=== PATIENT | male | born 1940 | race Caucasian/White ===

== ENCOUNTER 2021-06-25 12:07 | Emergency (ER) | payer OTHER, MEDICARE, SELFPAY ==
[2021-06-25 12:56] VITALS: BP 195/89; PULSE 66; RESP 20; TEMP 36.7; O2SAT 98
--- NOTE | 2021-06-25 13:12 | ED.SKABFB ---
HPI - Skin/Abscess/Foreign Bdy General Chief complaint: Skin/Abscess/Foreign Body Stated complaint: boils on neck Time Seen by Provider: 06/25/21 13:17 Source: patient and family Mode of arrival: wheelchair Limitations: no limitations History of Present Illness HPI narrative: 80-year-old man comes in today complaining of tender, swollen and draining area on the left side of his neck that started a few days ago. His noted that the drainage was sometimes red, sometimes yellow. He states it is mildly tender with palpation. His is worried that he has some swelling around that area. He denies fever, nausea, vomiting, weakness or prior skin infections or MRSA infections. complaint: abscess/boil Onset (ago): day(s) (3) Tetanus up to date: unsure Location: neck Severity: moderate Quality: sharp Pain Consistency: intermittent Relieving factors: none Exacerbating factors: palpation Context: other (Had a lesion removed from his lower lip last week.) Associated symptoms: denies other symptoms Treatments prior to arrival: other (Topical peroxide) Related Data Home Medications Medication Instructions Recorded Confirmed metformin 1,000 mg PO BID 06/25/21 06/25/21 Allergies Allergy/AdvReac Type Severity Reaction Status Date / Time No Known Allergies Allergy Verified 06/25/21 13:21 Review of Systems Review of Systems: All systems reviewed & are unremarkable except as noted in HPI and below Constitutional: Constitutional: Denies chills and Denies fever(s) Cardiovascular: Cardiovascular: Denies chest pain and Denies radiating jaw, neck or arm pain Respiratory: Respiratory: Denies cough, Denies dyspnea and Denies wheezing Gastrointestinal: Gastrointestinal: Denies abdominal pain, Denies nausea and Denies vomiting Genitourinary: Genitourinary: Denies hematuria, Denies dysuria and Denies urinary frequency Musculoskeletal: Musculoskeletal: Denies back pain, Denies arthralgias and Denies joint swelling Integumentary/Breasts: Skin/Breast: Denies pruritus, Denies erythema and Denies rash Neurologic: Denies vertigo, Denies dizziness and Denies syncope Hematologic/Lymphatic: Hematologic/Lymphatic: Denies easy bleeding and Denies easy bruising PMFSH Past Medical History Medical History (Updated 06/25/21 @ 14:28 by Mario Reza MD) HTN (hypertension) T2DM (type 2 diabetes mellitus) Social History Social History (Updated 06/25/21 @ 14:23 by Mario Reza MD) Smoking status: Former smoker Alcohol intake: former Substance use: never Living arrangements: with family Exam Const: General: healthy appearing, no acute distress and alert Orientation/consciousness: patient oriented x3 Limitations: no limitations HENMT: Head: normal to inspection Face and sinus: normal facial exam Eyes: Conjunctivae: conjunctivae normal Pupils: Equal, round and reactive pupils present EOM: EOMs intact bilaterally Neck: Neck: no lymphadenopathy Other: 2 x 1 cm mildly tender area of erythema and fluctuance on the left lateral neck. There is also a narrow 2 cm long area of moist skin with some central yellow exudate in a skin fold. Resp: Effort & Inspection: normal respiratory effort and not labored Auscultation: clear to auscultation bilaterally, no rales, no rhonchi and no wheezes Cardio: Rate: regular rate Rhythm: regular rhythm Heart sounds: no murmurs Skin: General skin exam: normal color, no jaundice and no pallor Rashes: no rashes Neuro: General: patient oriented x3, moves all extremities, no focal motor deficits and CN's II-XI intact bilaterally Speech: normal speech Extrem: General: normal to inspection and no clubbing, cyanosis or edema Psych: Appearance: grossly normal and well kempt Mental Status: mental status grossly normal Affect: normal affect Attitude: cooperative Thought content: Yes Normal thought content present Course Vital Signs Vital signs: Vital Signs Temperature 36.
[2021-06-25 14:53] VITALS: PULSE 66; RESP 20; O2SAT 98
== END 2021-06-25 14:56 | disposition home or self-care (01) ==
PROVIDERS: Emergency Provider Emergency Medicine
DX: L02.11 Cutaneous abscess of neck (principal); I10 Essential (primary) hypertension; E11.9 Type 2 diabetes mellitus without complications; Z87.891 Personal history of nicotine dependence
CPT/HCPCS: 10060; 87070; 87205; 99283

== ENCOUNTER 2025-07-25 10:22 | Emergency (ER) | payer OTHER, SELFPAY ==
[2025-07-25] VITALS (40 sets, daily range): BP systolic 102–137; BP diastolic 49–69; PULSE 75–85; RESP 8–21; TEMP 36.6; O2SAT 96–100
--- NOTE | ~2025-07-25 | XR_ITS ---
EXAM/PROCEDURE: XR chest 1V portable HISTORY: Weakness COMPARISON: None available. TECHNIQUE: AP view(s) of the chest. FINDINGS: LUNGS: Grossly Clear of acute processes. The exam is obtained in expiration, which is causing crowding of the lung markings. PLEURAL SPACES: Clear. No evidence of fluid or pneumothorax. HEART/ MEDIASTINUM: Prominent, at least in part related to the AP technique SOFT TISSUES: No significant findings. BONES: No acute osseous abnormality. IMPRESSION: No acute findings. Reviewed, dictated and finalized at location A. UNITY OUTREACH ADVOCATE IMPRESSION: No acute findings.
--- NOTE | ~2025-07-25 | CT_ITS ---
CT HEAD NON-CONTRAST Clinical History: weakness Comparison: None Technique: Unenhanced axial images skull base to vertex Coronal, sagittal reformats CT images acquired with automatic exposure control for dose reduction DLP: 757 mGy-cm Findings: White matter chronic microvascular ischemic changes. Lacune right insula. Sulci, ventricles: Unremarkable. No intracerebral hemorrhage. No evidence acute territorial infarct. No mass effect, midline shift. Bony calvarium intact. Visualized paranasal sinuses: Clear. Mastoid air cells: Clear. IMPRESSION: 1. No acute intracranial findings. Reviewed, dictated and finalized at location R. ES ASSISTANT
--- NOTE | 2025-07-25 10:44 | ECG_ITS ---
Test Date: 2025-07-25 11:15:32 Measurements Intervals [place] Rate: 74 P: 0 WV: 0 QRS: -50 QRSD: 144 T: 113 QT: 423 QTc: 472 Interpretive Statements SINUS RHYTHM with first degree block LEFT AXIS DEVIATION [QRS AXIS < -30] LEFT BUNDLE BRANCH BLOCK [120+ ms QRS DURATION, 80+ ms Q/S IN V1/V2, 85+ ms R IN I/aVL/V5/V6] No previous ECG available for comparison Electronically Signed On 07-25-2025 21:30:22 [employer] by Barrett Rodriguez M.D.
--- NOTE | 2025-07-25 11:23 | ED.WEAKNESS ---
HPI - Weakness General Chief complaint: Weakness Stated complaint: wound Time Seen by Provider: 07/25/25 10:42 Source: patient and family Mode of arrival: EMS Limitations: other (Patient has Parkinson's disease and difficulty with speech chronically) History of Present Illness HPI Narrative: Patient is an 84-year-old male with Parkinson's disease here with generalized weakness and not eating for the past 2 weeks. He has loss significant weight over the past month according to the . [facility] due to the fact that he is not eating and losing weight. Some of the eating problem appears to be due to the fact that he is not able to swallow properly with the Parkinson's disease which has been going on for a period of time. No fever chills. No chest pain or shortness of breath. Nausea vomiting or diarrhea denied. MD Complaint: generalized weakness and difficulty walking Onset (ago): week(s) (Acutely the generalized weakness has gotten worse from baseline) Duration: constant Location: generalized Migration: none Severity: moderate Severity scale (1-10): 4 Quality: other (No pain) Relieving factors: none Exacerbating factors: none Context: history of similar Associated symptoms: loss of appetite Related Data Home Medications ?Medication ?Instructions ?Recorded ?Confirmed ?Last Taken ?Type metformin 1,000 mg tablet 1,000 mg PO BID 06/25/21 06/25/21 06/25/21 History Allergies Allergy/AdvReac Type Severity Reaction Status Date / Time No Known Allergies Allergy Verified 07/25/25 11:06 Review of Systems Review of Systems: All systems reviewed & are unremarkable except as noted in HPI and below Constitutional: Constitutional: Reports no additional constitutional complaints Eyes: Eyes: Reports no additional eye complaints ENT: Reports system reviewed and no additional complaints, except as documented Cardiovascular: Cardiovascular: Reports no additional cardiovascular complaints Respiratory: Respiratory: Reports no additional respiratory complaints Gastrointestinal: Gastrointestinal: Reports no additional gastrointestinal complaints Genitourinary: Genitourinary: Reports no additional male genitourinary complaints Musculoskeletal: Musculoskeletal: Reports no additional musculoskeletal complaints Integumentary/Breasts: Skin/Breast: Reports system reviewed and no additional complaints, except as docu Neurologic: Reports system reviewed and no additional complaints, except as documented Psychiatric: Psychiatric: Reports no additional psychiatric complaints Endocrine: Endocrine: Reports no additional endocrine complaints Hematologic/Lymphatic: Hematologic/Lymphatic: Reports no additional hematologic/lymphatic complaints Allergic/Immunologic: Allergic/Immunologic: Reports no additional allergic/immunologic complaints PMFSH Past Medical History Medical History (Reviewed 07/25/25 @ 11: by Yonathan Stone MD) T2DM (type 2 diabetes mellitus) HTN (hypertension) Social History Social History Smoking status: Former smoker Alcohol intake: former Substance use: never Living arrangements: with family Exam Const: General: healthy appearing Nutritional Appearance: well nourished Orientation/consciousness: patient oriented x3 HENMT: Head: normal to inspection Ears: external ears normal Face/Nose/Sinus: Normal external nose present Eyes: Conjunctivae: conjunctivae normal Pupils: Equal, round and reactive pupils present EOM: EOMs intact bilaterally Neck: Neck: normal visual inspection, no lymphadenopathy and no meningeal signs Chest: Chest palpation & inspection: normal inspection of the chest Resp: Effort & Inspection: normal respiratory effort and not labored Auscultation: clear to auscultation bilaterally and no crackles Cardio: Rate: regular rate Rhythm: regular rhythm Heart sounds: no murmurs GI: Inspection: non-distended GI Palp: Yes Soft to palpation and No Tenderness to palpation present (GI) Auscultation: normal bowel sounds : General: Yes bladder normal to palpation Back/Spine/Pelvis: Back: no CVA tenderness Skin: General skin exam: normal color and no jaundice Rashes: no rashes Wounds: no wounds Neuro: General: patient oriented x3, moves all extremities, no meningeal signs, no focal motor deficits and CN's II-XI intact bilaterally Cranial nerves: Yes Nystagmus not present Speech: No normal speech (Lack of speech) Gait exam (Neuro): gait abnormal (Difficulty chronically with gait due to Parkinson's disease) Other: Fast exam is negative, NIH 0, GCS is 15 Psych: Mental Status: mental status grossly normal Affect: normal affect Attitude: cooperative Course Vital Signs Vital signs: Vital Signs Temperature 36.6 C 07/25/25 10:22 Pulse Rate 76 07/25/25 10:22 Respiratory Rate 20 07/25/25 10:22 Blood Pressure 130/53 L 07/25/25 10:22 Pulse Oximetry 100 07/25/25 10:22 Oxygen Delivery Room Air 07/25/25 10:22 Temperature 36.6 C 07/25/25 10:22 Pulse Rate 82 07/25/25 14:31 Respiratory Rate 13 07/25/25 14:31 Blood Pressure 132/53 L 07/25/25 14:31 Pulse Oximetry 98 07/25/25 14:31 Oxygen Delivery Room Air 07/25/25 10:22 MDM - Weakness MDM Narrative Medical decision making narrative: Patient is an 84-year-old male with generalized weakness and lack of eating for 2 weeks with difficulty swallowing all happening with his Parkinson's disease. Will do a neurocardiogenic workup at this time. EKG. Labs. IV fluids. Patient will be transferred for higher level medical [facility] to [facility]. I reviewed the patient's decubitus ulcer area on his bottom and it is only proud tissue and scar tissue at this time without any open wounds. It is a non stage decubitus ulcer. Lab Data Attestation: I reviewed the patient's lab results. 07/25/25 11:27 07/25/25 13:42 Labs: Lab Results 07/25/25 07/25/25 07/25/25 Range/Units 11:27 13:13 13:42 WBC 8.2 (4.8-10.8) K/mm3 RBC 3.29 L (4.70-6.10) M/mm3 Hgb 10.1 L (12.4-15.3) g/dL Hct 31.8 L (37.0-46.0) % MCV 96.7 (78.0-102.0) fL MCH 30.7 (27.0-31.0) pg MCHC 31.8 L (32-36) g/dL RDW 14.0 (11.6-14.4) % Plt Count 245 (150-420) K/mm3 MPV 9.2 (8.7-11.0) fl Immature Gran % (Auto) 0.6 H (0.0-0.0) % Neut % (Auto) 79.4 H (50.0-70.0) % Lymph % (Auto) 13.7 L (18.0-42.0) % [place] % (Auto) 5.5 (2.0-11.0) % Eos % (Auto) 0.4 L (1.0-6.0) % Baso % (Auto) 0.4 (0.0-1.0) % Lymph # (Auto) 1.12 (1.10-4.50) K/mm3 [place] # (Auto) 0.45 (0.10-0.90) K/mm3 Eos # (Auto) 0.03 (0.02-0.50) K/mm3 Baso # (Auto) 0.03 (0.00-0.10) K/mm3 Abs Immat Gran (auto) 0.05 H (0.00-0.00) K/mm3 Absolute Neuts (auto) 6.52 (1.70-7.20) K/mm3 Absolute Nucleated RBC 0.00 (0.00-0.00) K/mm3 Nucleated RBC % 0.0 (0-0.0) % Sodium 143 142 (137-145) mmol/L Potassium 6.4 H* 5.6 H (3.4-5.0) mmol/L Chloride 105 107 (98-107) mmol/L Carbon Dioxide 10 L 10 L (22-30) mmol/L Anion Gap 28 H 25 H (4-12) mmol/L BUN 102 H* 97 H (9-20) mg/dL Creatinine 4.47 H 4.06 H (0.7-1.3) mg/dL Estim Creat Clear Calc Not Reportable Not Reportable Estimated GFR 13 L 14 L (59 - ) Glucose 99 155 H (65-110) mg/dL POC Capillary Glucose 206 H (65-105) mg/dl Calculated Osmolality 327 H 327 H (285-295) mOsm/kg Lactic Acid 10.4 H 9.0 H* (0.4-2.0) mmol/L Calcium 9.9 9.2 (8.4-10.2) mg/dL Magnesium 2.9 H (1.6-2.3) mg/dL Total Bilirubin 1.3 (0.2-1.3) mg/dL AST 27 (17-59) U/L ALT 16 (6-50) U/L Alkaline Phosphatase 77 (38-126) U/L Troponin I < 0.012 (0.000-0.034) ng/mL NT-Pro-B Natriuret Pep 3000 H (19.9-100) pg/mL Total Protein 6.3 (6.3-8.2) g/dL Albumin 4.0 (3.5-5.1) g/dL Influenza A (RT-PCR) Negative (Negative) Influenza B (RT-PCR) Negative (Negative) RSV (RT-PCR) Negative (Negative) SARS-CoV-2 RNA (RT-PCR) Negative (Negative) 07/25/25 Range/Units 13:51 WBC (4.8-10.8) K/mm3 RBC (4.70-6.10) M/mm3 Hgb (12.4-15.3) g/dL Hct (37.0-46.0) % MCV (78.0-102.0) fL MCH (27.0-31.0) pg MCHC (32-36) g/dL RDW (11.6-14.4) % Plt Count (150-420) K/mm3 MPV (8.7-11.0) fl Immature Gran % (Auto) (0.0-0.0) % Neut % (Auto) (50.0-70.0) % Lymph % (Auto) (18.0-42.0) % [place] % (Auto) (2.0-11.0) % Eos % (Auto) (1.0-6.0) % Baso % (Auto) (0.0-1.0) % Lymph # (Auto) (1.10-4.50) K/mm3 [place] # (Auto) (0.10-0.90) K/mm3 Eos # (Auto) (0.02-0.50) K/mm3 Baso # (Auto) (0.00-0.10) K/mm3 Abs Immat Gran (auto) (0.00-0.00) K/mm3 Absolute Neuts (auto) (1.70-7.20) K/mm3 Absolute Nucleated RBC (0.00-0.00) K/mm3 Nucleated RBC % (0-0.0) % Sodium (137-145) mmol/L Potassium (3.4-5.0) mmol/L Chloride (98-107) mmol/L Carbon Dioxide (22-30) mmol/L Anion Gap (4-12) mmol/L BUN (9-20) mg/dL Creatinine (0.7-1.3) mg/dL Estim Creat Clear Calc Estimated GFR (59 - ) Glucose (65-110) mg/dL POC Capillary Glucose 152 H (65-105) mg/dl Calculated Osmolality (285-295) mOsm/kg Lactic Acid (0.4-2.0) mmol/L Calcium (8.4-10.2) mg/dL Magnesium (1.6-2.3) mg/dL Total Bilirubin (0.2-1.3) mg/dL AST (17-59) U/L ALT (6-50) U/L Alkaline Phosphatase (38-126) U/L Troponin I (0.000-0.034) ng/mL NT-Pro-B Natriuret Pep (19.9-100) pg/mL Total Protein (6.3-8.2) g/dL Albumin (3.5-5.1) g/dL Influenza A (RT-PCR) (Negative) Influenza B (RT-PCR) (Negative) RSV (RT-PCR) (Negative) SARS-CoV-2 RNA (RT-PCR) (Negative) Imaging Data Attestation: I personally reviewed and interpreted this imaging study as follows: Radiologist's impression: CT scan of the head was negative for acute process Chest x-ray was negative for acute process ECG Data EKG #1: Attestation: I personally reviewed and interpreted this ECG as follows: ECG completion date: 07/25/25 ECG completion time: 11:28 Interpretation: No prior EKGs for comparison but he is not having chest pain at this time EKG Interpretation: normal rate, sinus rhythm, no ectopy, non-specific ST changes, widened QRS, LBBB, normal QT and left axis Discharge Plan Discharge Clinical Impression: Acute dehydration, DARWIN (acute kidney injury), Acute hyperkalemia, Metabolic acidosis, Acute lactic acidosis Dysphagia Qualifiers: Dysphagia type: other dysphagia Qualified Code(s): R13.19 - Other dysphagia Patient Disposition: Acute Care Hospital Condition: Improved Patient Language: Vietnamese Prescriptions: No Action metformin 1,000 mg Tablet 1,000 mg PO BID sulfamethoxazole-trimethoprim [Bactrim DS] 800-160 mg tablet 1 tablet PO Q12H Qty: 14 0RF mupirocin 2 % ointment 1 applic topical TID Qty: 15 0RF Follow-up/Referrals: [facility] [Primary Care Provider, Medical] Time of Disposition: 15:35
[2025-07-25] MEDS: SODIUM CHLORIDE 0.9% IV 1,000 ML 999 ML IV CONT (11:24)
[2025-07-25 11:36] LABS: Hematocrit 31.8 % (37.0-46.0); Hemoglobin 10.1 g/dL (12.4-15.3); Immature Granulocyte Percent A 0.6 % (0.0-0.0); Lymphocytes Absolute Auto 1.12 K/mm3 (1.10-4.50); Mean Corpuscular HGB Conc 31.8 g/dL (32-36); Mean Corpuscular Hemoglobin 30.7 pg (27.0-31.0); Mean Corpuscular Volume 96.7 fL (78.0-102.0); Nucleated Red Blood Cells Absolute Auto 0.00 K/mm3 (0.00-0.00); Nucleated Red Blood Cells Perc 0.0 % (0-0.0); Platelet Count Result 245 K/mm3 (150-420); Red Blood Count 3.29 M/mm3 (4.70-6.10); White Blood Count 8.2 K/mm3 (4.8-10.8)
[2025-07-25 11:58] LABS: Alanine Aminotransferase 16 U/L (6-50); Albumin Level 4.0 g/dL (3.5-5.1); Alkaline Phosphatase 77 U/L (38-126); Anion Gap 28 mmol/L (4-12); Aspartate Amino Transferase 27 U/L (17-59); Bilirubin,Total 1.3 mg/dL (0.2-1.3); Calcium 9.9 mg/dL (8.4-10.2); Carbon Dioxide 10 mmol/L (22-30); Chloride 105 mmol/L (98-107); Estimated Glomerular Filt Rate 13; Glucose 99 mg/dL (65-110); Magnesium 2.9 mg/dL (1.6-2.3); Osmolality Calculated 327 mOsm/kg (285-295); Sodium 143 mmol/L (137-145); Total Protein 6.3 g/dL (6.3-8.2)
[2025-07-25 12:06] LABS: Blood Urea Nitrogen 102 mg/dL (9-20); NT Pro B Type Natriuretic Pept 3000 pg/mL (19.9-100); Potassium 6.4 mmol/L (3.4-5.0)
[2025-07-25 12:10] LABS: Troponin I < 0.012 ng/mL (0.000-0.034)
[2025-07-25 12:13] LABS: Influenza A QL RT-PCR Negative (Negative); Influenza B QL RT-PCR Negative (Negative); RSV RNA, RT-PCR Negative (Negative); SARS-CoV-2 RNA PCR Negative (Negative)
[2025-07-25] MEDS: SODIUM CHLORIDE 0.9% IV 1,000 ML 250 ML IV CONT (12:41)
[2025-07-25] MEDS: DEXTROSE 50% 25 GM/50 ML SYRINGE IV PUSH (12:41)
[2025-07-25] MEDS: INSULIN HUMAN REGULAR (*BKC) 1,000 UNITS/10 ML VIAL 10 UNITS IV PUSH (12:41)
[2025-07-25] MEDS: SODIUM BICARBONATE 8.4% 50 MEQ/50 ML SYRINGE IV PUSH (12:41)
--- OUTSIDE RECORDS SUMMARY | 2025-07-25 13:54 | XMS_ITS | Clinical Summary ---
Author Organization [facility] Address [facility] [place] [address] Care Team Providers Care Probate Lawyer Name Role Phone Stephanie Rosario MD Primary Care Provider [phone] Social History Tobacco Use Types Packs/Day Years Used Date Smoking Tobacco: Never Assessed Sex and Gender Information Value Date Recorded Sex Assigned at Not on file Legal Sex Male 11:19 AM CDT Gender Identity Not on file Sexual Orientation Not on file Plan of Treatment Health Maintenance Due Date Last Done Comments DTaP, Tdap and Td Vaccines ( 1 - Tdap) 1960 Pneumococcal Vaccine: 50+ Ye ars (1 of 1 - PCV) 1991 Zoster Vaccines (1 of 2) 1991 RSV Immunization or 60+ Years (1 - 1-dose 75+ series) 2016 COVID-19 Vaccine ( - 2024-2 6 season) 2025 Influenza Adult (#1) 2025 Hepatitis A Vaccines Aged Out No long er eligible based on patient's age to complete this topic Meningococcal B Vaccine Aged Out No l onger eligible based on patient's age to complete this topic Meningococcal Vaccine Aged Out No gifty freddy eligible based on patient's age to complete this topic RSV Immunizations Under 20 Months Aged Out No longer eligible based on patient's age to complete this topic Insurance [facility] Care Teams Probate Lawyer Relationship Specialty Start Date End Date Stephanie Rosario MD [address] [place] [address] PCP - General FAMILY PRACTICE 02/19/23
[2025-07-25 14:07] LABS: Anion Gap 25 mmol/L (4-12); Blood Urea Nitrogen 97 mg/dL (9-20); Calcium 9.2 mg/dL (8.4-10.2); Carbon Dioxide 10 mmol/L (22-30); Chloride 107 mmol/L (98-107); Estimated Glomerular Filt Rate 14; Glucose 155 mg/dL (65-110); Osmolality Calculated 327 mOsm/kg (285-295); Potassium 5.6 mmol/L (3.4-5.0); Sodium 142 mmol/L (137-145)
== END 2025-07-25 16:53 | disposition short-term general hospital (02) ==
PROVIDERS: Emergency Provider Emergency Medicine
DX: E86.0 Dehydration (principal); N17.9 Acute kidney failure, unspecified; E87.5 Hyperkalemia; E87.20 Acidosis, unspecified; E87.21 Acute metabolic acidosis; R13.19 Other dysphagia; E11.9 Type 2 diabetes mellitus without complications; I10 Essential (primary) hypertension; Z87.891 Personal history of nicotine dependence; Z20.822 Contact with and (suspected) exposure to COVID-19
CPT/HCPCS: 36415; 70450; 71045; 80048; 80053; 82948; 83605; 83735; 83880; 84484; 85025; 87637; 93005; 96361; 96374; 96375; 99285; J1815; J7030

== ENCOUNTER 2025-07-25 17:36 | Observation (INO) | payer MEDICARE, OTHER, SELFPAY ==
[2025-07-25] VITALS (8 sets, daily range): BP systolic 140–158; BP diastolic 5–68; PULSE 78–89; RESP 14–20; TEMP 36.6–37.2; O2SAT 98–100; BMI 24.8
--- NOTE | ~2025-07-25 | US_ITS ---
US scrotum doppler INDICATION: Abscess left scrotum TECHNIQUE: Testicular sonogram utilizing grayscale and color Doppler FINDINGS: There is heterogeneous echotexture in both testicles with bilateral testicular microlithiasis. No discrete testicular mass identified. There are areas Doppler signal in both ovaries. There is a large extratesticular cystic mass of the left scrotum measuring 3.2 x 2.5 cm without internal septations or solid components, consistent with benign epididymal or tunica vaginalis cyst. No complex fluid collections or findings to suggest active abscess are seen. No evidence for varicocele or hydrocele. Normal Doppler signal in both ovaries. Right testicle measures 3 x 2.1 x 1.7 cm. Left testicle measures 2.4 x 1.8 x 2 cm. IMPRESSION: 1. Large benign-appearing extratesticular cyst in the left scrotum, likely epididymal or tunica vaginalis cyst. No evidence for abscess. 2: Bilateral testicular microlithiasis. This finding is likely incidental. Indicator of malignancy is less favored given the patient's age. Reviewed, dictated and finalized at location O. CO PLASTERER IMPRESSION: 1. Large benign-appearing extratesticular cyst in the left scrotum, likely epi didymal or tunica vaginalis cyst. No evidence for abscess. 2: Bilateral testicular microlithiasis. This finding is likely incidental. Ind icator of malignancy is less favored given the patient's age.
--- NOTE | ~2025-07-25 | XR_ITS ---
MODIFIED ESOPHAGRAM HISTORY: Dysphagia. TECHNIQUE: Modified barium esophagram was performed on 07/26/2025. I administered fluoroscopy and performed the exam with speech pathologist. Patient was seated for lateral fluoroscopic imaging for ingestion of thin liquids, pudding, solids and quantified amounts, followed by thin liquids in uncontrolled amounts. This was recorded on tape. A single fluoroscopic spot image was also recorded. The DAP for this procedure was 1.3 Gycm2. The amount of fluoroscopy time used during this procedure was 1.9 minutes. FINDINGS: Oral stage: Slow mastication with poor dentition. Pharyngeal stage: Reduced tongue base retraction. Trace vallecular residue. There is transient trace/flash laryngeal penetration without aspiration. Cervical/esophageal stage: Adequate function. IMPRESSION: Mild oropharyngeal dysphagia with transient trace/flash laryngeal penetration without aspiration. Please correlate with speech pathologist findings and specific feeding recommendations. Reviewed, dictated and finalized at location A. GER PEST IMPRESSION: Mild oropharyngeal dysphagia with transient trace/flash laryngeal p enetration without aspiration. Please correlate with speech pathologist findin gs and specific feeding recommendations.
--- NOTE | ~2025-07-25 | US_ITS ---
US renal BI 07/26/2025 14:33 Indication: Chronic renal failure Procedure: Realtime limited renal ultrasound using transabdominal technique Comparison: No prior studies for comparison. Findings: There is a large right renal cyst measuring 6.6 cm. Renal echotexture is poorly defined with poor cortical medullary differentiation. There are areas of ill-defined hypoechogenicity. There are areas of increased echogenicity, suspicious for renal stones. Right kidney measures 10.1 cm. Mild hydronephrosis. Left renal echotexture is heterogeneous with multiple echogenic foci, possibly renal stones. Left kidney measures 9.5 cm. Moderate left hydronephrosis. Impression: 1: Ill-defined bilateral echogenicity throughout both kidneys. Cannot exclude underlying mass. Probable bilateral renal stones. Consider correlation with contrast-enhanced CT or MRI. 2: Large right renal cyst measuring 6.6 cm. 3: Bilateral hydronephrosis, left greater than right. Reviewed, dictated and finalized at location O. DISTRIBUTION SYSTEM OPERATOR Impression: 1: Ill-defined bilateral echogenicity throughout both kidneys. Cannot exclude u nderlying mass. Probable bilateral renal stones. Consider correlation with cont rast-enhanced CT or MRI. 2: Large right renal cyst measuring 6.6 cm. 3: Bilateral hydronephrosis, left greater than right.
--- OUTSIDE RECORDS SUMMARY | 2025-07-25 17:39 | XMS_ITS | Clinical Summary ---
Author Organization [facility] Address [facility] [place] [address] Care Team Providers Care Printing Table Worker Name Role Phone Stephanie Rosario MD Primary Care Provider [phone] Social History Tobacco Use Types Packs/Day Years [...] patient's age to complete this topic Insurance [facility] Care Teams Printing Table Worker Relationship Specialty Start Date End Date Stephanie Rosario MD [address] [place] [address] PCP - General FAMILY PRACTICE 02/19/23
--- NOTE | 2025-07-25 17:54 | ADMGEN ---
This patient, Warren Esparza, was admitted to IMU Room 212-01 @ 1740 direct admit from [facility] Patient/family oriented to hospital policies and general routines including ID bracelet, bed and alarms, visiting hours, pain management, procedures, bathroom and other care routines, personal items, smoking policy, room service/diet, and visiting hours. Information on how to activate the Rapid Response Team has been discussed. Patient/Family are encouraged to report perceived risks to care and to ask questions if they do not understand what they are told or what they should do.
--- NOTE | 2025-07-25 18:05 | WNDPHOTO ---
PHOTO ONLY - See Nursing Notes and/ or assessments for documentation.
--- NOTE | 2025-07-25 18:14 | WNDPHOTO ---
PHOTO ONLY - See Nursing Notes and/ or assessments for documentation.
[2025-07-25 19:18] LABS: Anion Gap 21 mmol/L (4-12); Blood Urea Nitrogen 93 mg/dL (9-20); Calcium 9.0 mg/dL (8.4-10.2); Carbon Dioxide 13 mmol/L (22-30); Chloride 106 mmol/L (98-107); Estimated CRCL calculation 13 ml/min; Estimated Glomerular Filt Rate 16; Glucose 94 mg/dL (65-110); Potassium 5.5 mmol/L (3.4-5.0); Sodium 140 mmol/L (137-145)
[2025-07-25] MEDS: LACTATED RINGERS 1,000 ML 100 ML IV CONT (19:43)
--- NOTE | 2025-07-25 20:05 | PM.IMHP ---
H&P: HPI History of Present Illness Date/Time: 07/25/25 20:05 Chief Complaint: Generalized weakness Narrative: This is an 84-year-old male patient who has a history of Parkinson's and chronic kidney disease. The patient typically goes to [facility] for his care. The patient does see his rn on site on a routine basis [place] the [place]. the patient is very hard of hearing and the family is answering questions for him. According to his Uyen, the patient has had a poor appetite for last 2 weeks. The tells me that he is able to drink liquids through a straw without difficulty. However at times he feels that the food gets stuck in his throat and has difficulty swallowing the food. The patient has been more difficult to care for at home according to the . She stated that she gets help at home approximately 3 hours a day. He has been having more difficulty moving and feels that he has been losing weight. She stated that he was drinking water today through a straw without difficulty. She also noticed a red in area to the left testicle that appears to have a blister on it. He is diabetic and is not routinely checked at home with a glucose monitor. According to the Uyen, she did contact the rn on site at [facility] and it was recommended that the patient be seen at the nearest emergency room. The stated that she can no longer take him to the [place] as is too far to take him with his declining condition. She did not want to take the patient to the [facility] and rather wanted the patient to stay locally. Initial potassium was 6.4 and is now down to 5.5. It was reported that the patient has chronic kidney disease and previous creatinine was in the threes. His BUN was 102 upon [facility] and is now down to 93. Creatinine and was noted to be 4.47 is now 3.71. His GFR was 13 and is now 16 today. Point of care glucose 206. Lactic was 10.4 and is now down to 3.7. His H&H is 10.1 and 31.8. Calculated osmolality was 327. Magnesium 2.9. BNP 3000. Viral serology is negative. Head CT was read as no acute intracranial findings. Chest x-ray was read as no acute findings. EKG was read as uncertain regular rhythm left axis deviation. It QTC 472. The patient does have some tremors and the is EKG appears to have some interference. The patient reportedly received 2 L of IV bolus, sodium bicarb 50 mEq, 10 units IV push of regular insulin, and D50. The patient was transferred to [facility] with the family members at the bedside answering questions. He denies any nausea vomiting or diarrhea. The patient is being admitted to observation status on the date of service of 07/25/2025. Review of Systems Review of Systems: The patient is very hard of hearing does not have his hearing aids with him at this time. The family is answering questions for him. ROS unobtainable: Yes unobtainable due to medical condition PMFSH Past Medical History Medical History (Updated 07/26/25 @ 18:46 by Shazia Berman MD) Chronic kidney disease Hyperlipidemia BPH (benign prostatic hyperplasia) Macular degeneration Parkinsons Cardiomegaly T2DM (type 2 diabetes mellitus) HTN (hypertension) Surgical History Surgical History (Updated 07/25/25 @ 20:41 by Jessica Salazar APRN) H/O local excision of skin lesion History of cataract extraction Family History Family History (Updated 07/25/25 @ 20:42 by Jessica Salazar APRN) Mother Diabetes mellitus Sibling Diabetes mellitus Father Cerebrovascular accident Son Cancer Social History Social History (Updated 07/25/25 @ 20:46 by Jessica Salazar APRN) Social History: The patient lives at home with his Uyen. He had 3 children and only has 1 surviving daughter now. The patient smokes cigarettes many years ago and quit consenting to smoke cigars for many years. He no longer smokes cigarettes are cigars. He denies any alcohol use. Uyen his is the [employer] power insurance defense attorney for healthcare. Code status: Full code Smoking status: Former smoker Tobacco type: pipe and cigars Alcohol intake: never Substance use: never Substance use type: does not use Lack of Transportation: No Lack of Food: Never True Current Housing: I Have Housing Concerned About Future Housing: No Difficulty Paying Gas/Electric Bills: No Difficulty Paying for Meds: No Currently Unemployed: No Education: High School Diploma/GED Difficulty w/ Childcare or Family Care: No Living arrangements: with family Spiritual care concerns: No Meds Home Medications and Allergies Home Medications ?Medication ?Instructions ?Recorded ?Confirmed ?Type metformin 1,000 mg tablet 1,000 mg PO BID 06/25/21 07/25/25 History aspirin 81 mg chewable tablet 81 mg PO DAILY 07/25/25 07/25/25 History (Aspirin Childrens) carbidopa 25 mg-levodopa 100 mg 2 tablet PO QID 07/25/25 07/25/25 History tablet (Sinemet) carvedilol 25 mg tablet 25 mg PO BID 07/25/25 07/25/25 History cyanocobalamin (vitamin B-12) 2,000 mcg PO EVERY OTHER DAY 07/25/25 07/25/25 History 1,000 mcg tablet ferrous gluconate 324 mg (38 mg 324 mg PO DAILY 07/25/25 07/25/25 History iron) tablet finasteride 5 mg tablet 5 mg PO DAILY 07/25/25 07/25/25 History losartan 100 mg tablet (Cozaar) 100 mg PO DAILY 07/25/25 07/25/25 History nifedipine 60 mg tablet,extended 60 mg PO BID 07/25/25 07/25/25 History release 24 hr (Procardia XL) simvastatin 40 mg tablet 40 mg PO QPM 07/25/25 07/25/25 History simvastatin 80 mg tablet 80 mg PO QPM 07/25/25 07/25/25 History sitagliptin 50 mg tablet 50 mg PO DAILY 07/25/25 07/25/25 History sodium bicarbonate 650 mg tablet 650 mg PO BID 07/25/25 07/25/25 History tamsulosin 0.4 mg capsule 0.4 mg PO DAILY 07/25/25 07/25/25 History Allergies Allergy/AdvReac Type Severity Reaction Status Date / Time No Known Allergies Allergy Verified 07/25/25 18:42 Vital Signs Vital Signs - 24 hr 07/25/25 18:00 07/25/25 18:24 07/25/25 19:51 Temperature 98.0 F 98 F Pulse Rate 89 82 83 Respiratory Rate 20 14 Blood Pressure 158/68 H 153/67 H Pulse Oximetry 100 99 Exam Const: General: cooperative, healthy appearing, comfortable, no acute distress, well developed, awake, Physically active, average body habitus and well nourished Nutritional Appearance: average body habitus and well nourished Orientation/consciousness: oriented to person, oriented to place, oriented to time and patient oriented x3 Limitations: no limitations HENMT: Head: normal to inspection and No palpable skull fracture present Ears: hearing grossly impaired bilaterally Other: The stated that he typically has hearing aids which are [facility]ural [facility] and not [facility]. patient does not have his hearing aids with him today. Eyes: General: appearance normal, both eyes and all related structures Alignment and Position: alignment normal Neck: Neck: normal visual inspection Chest: Chest palpation & inspection: normal inspection of the chest Resp: Effort & Inspection: normal respiratory effort Auscultation: clear to auscultation bilaterally Cardio: Palpation: normal PMI Rate: regular rate Rhythm: regular rhythm Heart sounds: S1 normal heart sound present and S2 normal heart sound present Peripheral pulses: dorsalis pedis present (1+ pedal pulses) bilateral GI: Inspection: normal to inspection : Scrotum: edematous on the left, erythematous and scrotal swelling on the left Other: Pustular abscess noted to the left lower distal portion of the left scrotum. Skin: General skin exam: normal color Neuro: General: oriented to person Cranial nerves: Yes Equal, round and reactive pupils present Motor exam (neuro): Tremors during motor activity present (At rest bilateral upper extremity) Psych: Appearance: grossly normal Speech and movement: Normal speech and movement present Affect: normal affect Attitude: cooperative Thought process: Normal thought process present Thought content: Yes Normal thought content present H&P: Results Labs Labs: [facility] 07/25/25 18:55 Sodium 140 Potassium 5.5 H Chloride 106 Carbon Dioxide 13 L BUN 93 H Creatinine 3.71 H Glucose 94 Calcium 9.0 ECG Interpretation: 74 NE 0 QRSd 144 QT 423 QTc 472 --[place]-- P 0 QRS -50 T 113 UNCERTAIN REGULAR RHYTHM LEFT AXIS DEVIATION [QRS AXIS < -30] LEFT BUNDLE BRANCH BLOCK [120+ ms QRS DURATION, 80+ ms Q/S IN V1/V2, 85+ ms R IN I/aVL/V5/V6] No previous ECG available for comparison Imaging Chest x-ray: Radiologist's impression: Head CT no acute intracranial findings. Chest x-ray no acute findings as per radiologist. CT scan - head: Radiologist's impression: Impressions Scrotum Ultrasound 07/25/25 21:27 IMPRESSION: 1. Large benign-appearing extratesticular cyst in the left scrotum, likely epididymal or tunica vaginalis cyst. No evidence for abscess. 2: Bilateral testicular microlithiasis. This finding is likely incidental. Indicator of malignancy is less favored given the patient's age. Modified Barium Swallow 07/26/25 13:52 IMPRESSION: Mild oropharyngeal dysphagia with transient trace/flash laryngeal penetration without aspiration. Please correlate with speech pathologist findings and specific feeding recommendations. Renal Ultrasound 07/26/25 15:06 Impression: 1: Ill-defined bilateral echogenicity throughout both kidneys. Cannot exclude underlying mass. Probable bilateral renal stones. Consider correlation with contrast-enhanced CT or MRI. 2: Large right renal cyst measuring 6.6 cm. 3: Bilateral hydronephrosis, left greater than right. Assessment and Plan Assessment and plan (1) Acute renal failure superimposed on stage 5 chronic kidney disease, not on chronic dialysis: Code(s): N17.9 - Acute kidney failure, unspecified; N18.5 - Chronic kidney disease, stage 5 Status: Acute Assessment and Plan: -hold nephrotoxic medication. --renal ultrasound -nephrology consultation would greatly be appreciated for further evaluation and treatment plan. -the patient has had a poor appetite for the last 2 weeks and appears to be dehydrated. The patient has had some improvement with his BUN and creatinine with fluids. His BUN is was initially 102 and is down to 93. His creatinine was 4.47 and is down to 3.71. His estimated GFR was 13 and is now 16. Is unclear his exact baseline. I did request for lab work from the [facility]. However this may take some time. We may be able to get information from his rn on site that he sees on a routine basis. Is reported that his creatinine baseline is somewhere in the threes. -I reviewed the labs with the patient's Uyen, she stated that the patient would never agree to any dialysis. (2) Scrotal abscess: Code(s): N49.2 - Inflammatory disorders of scrotum Status: Acute Assessment and Plan: -ultrasound has been ordered. -blood cultures are pending. -urology has been consulted. -he was empirically started on cefepime, Flagyl and vancomycin for localized skin infection. (3) BPH (benign prostatic hyperplasia): Code(s): N40.0 - Benign prostatic hyperplasia without lower urinary tract symptoms Status: Acute Assessment and Plan: -continue with tamsulosin. (4) Parkinsons: Code(s): G20.A1 - Parkinson's disease without dyskinesia, without mention of fluctuations Status: Acute Assessment and Plan: - the patient has tremors trace hand history with rest. -I did recommend consulting Nephrology however the patient's stated that he has had Parkinson's for many years. -he now has stability where has decreased intake for the last 2 weeks. OT PT evaluation would greatly be appreciated. The stated that he does not choke on liquids and he does fine with liquids with a straw. Patient will be NPO after midnight for a swallow study through speech therapy. The stated that he has difficulty swallowing food but does not get showed on clear liquids. -we did discuss a rehab facility and the patient's family is open to options. loss prevention coordinator has been consulted. -continue with carbidopa levodopa with sips of water. (5) T2DM (type 2 diabetes mellitus): Code(s): E11.9 - Type 2 diabetes mellitus without complications Status: Acute Assessment and Plan: -check Accu-Cheks every 6 hours with sliding scale insulin. Hypoglycemic protocol as well. -patient's initial blood sugar was in the 200s. -check A1c if not performed in the last 3 months. -metformin is on hold at this time. -Januvia is on hold at this time as well. -the patient is NPO except for sips of water at this time. (6) Hyperlipidemia: Code(s): E78.5 - Hyperlipidemia, unspecified Status: Acute Assessment and Plan: -simvastatin is on hold at this time. (7) Cardiomegaly: Code(s): I51.7 - Cardiomegaly Status: Acute Assessment and Plan: -an echo has been ordered. - (8) HTN (hypertension): Code(s): I10 - Essential (primary) hypertension Status: Acute Assessment and Plan: -Coreg ,Procardia, and Cozaar are currently on hold at this time. -p.r.n. hydralazine with parameters. -current blood pressure is 153/67. Quality VTE Prophylaxis VTE prophylaxis: mechanical ordered
[2025-07-25] MEDS: INSULIN HUMAN REGULAR (*BKC) 100 UNITS/ML 10 UNITS IV PUSH (20:46)
[2025-07-25] MEDS: DEXTROSE 50% 25 GM/50 ML SYRINGE IV PUSH (20:46)
[2025-07-25] MEDS: SODIUM BICARBONATE 8.4% 50 MEQ/50 ML SYRINGE IV PUSH (20:47)
[2025-07-25] MEDS: CALCIUM GLUC 1,000 MG/NS 50 ML 1,000 MG/50 ML BAG 100 MG IVPB (20:47)
[2025-07-25] MEDS: metroNIDAZOLE 500 MG/ISO 100ML 500 MG/100 ML BAG 100 MG IVPB (20:47)
[2025-07-25] MEDS: CEFEPIME 2 GM in SODIUM CHLORIDE 0.9% IV 50 ML 100 ML IVPB (20:58)
[2025-07-25] MEDS: CARBIDOPA/LEVODOPA 25/100 MG TABLET 2 TABLET PO (21:02)
[2025-07-25] MEDS: VANCOMYCIN HCL 1,000 MG in SODIUM CHLORIDE 0.9% IV 250 ML 250 MG IVPB (21:40)
[2025-07-25 22:28] LABS: Anion Gap 17 mmol/L (4-12); Blood Urea Nitrogen 91 mg/dL (9-20); Calcium 9.2 mg/dL (8.4-10.2); Carbon Dioxide 16 mmol/L (22-30); Chloride 106 mmol/L (98-107); Estimated CRCL calculation 13 ml/min; Estimated Glomerular Filt Rate 17; Glucose 143 mg/dL (65-110); Potassium 4.6 mmol/L (3.4-5.0); Sodium 139 mmol/L (137-145)
[2025-07-26] VITALS (16 sets, daily range): BP systolic 144–160; BP diastolic 65–78; PULSE 71–87; RESP 16–20; TEMP 36.3–37.1; O2SAT 98–99; BMI 24.9
--- NOTE | 2025-07-26 | ECHO_ITS ---
Patient Info Name: Warren Esparza Age: 84 years : 1940 Gender: Male Ht: 66 in Wt: 154 lbs BSA: 1.81 m2 HR: 81 bpm BP: 160 / 69 mmHg Heart Rhythm: Sinus Rhythm Technical Quality: Poor Exam Date: 07/26/2025 10:16 AM Patient Status: I Admit Date: 07/25/2025 Exam Type: CA echo dop color flow w con Complete two-dimensional, color flow and Doppler transthoracic echocardiogram is performed with contrast to opacify the left ventricle and to improve the deliniation of the left ventricle endocardial borders. Staff Referring Physician: Jessica Salazar NP Clerical Proofreader: Adria Bui III Attending Provider: Mickey Neri Oca Contrast/Agitated Saline Contrast/Ag. Saline: Definity Amount: 2.00 ml Administered By: Adria Bui III Existing IV Access: Yes IV Access Condition: patent with no signs of infiltration Reason for Poor Study: patient body habitus Summary 1. Left ventricular chamber dimension is moderately enlarged. 2. Left ventricular systolic function is severely reduced, estimated at 15-20. 3. There is mildly increased left ventricular wall thickness. 4. Left ventricular septal wall motion is abnormal with septal motion related to bundle branch block. 5. The left ventricular diastolic function is abnormal. 6. There is no thrombus visualized in the left ventricle although not definitively excluded. 7. Left atrial chamber dimension is mildly enlarged. 8. There is mild mitral valve regurgitation. 9. The mitral valve has thickened leaflets. 10. There is mild tricuspid valve regurgitation. 11. There is mild pulmonic regurgitation. Left Ventricle Left ventricular chamber dimension is moderately enlarged. Left ventricular systolic function is severely reduced, estimated at 15-20. There is mildly increased left ventricular wall thickness. Left ventricular septal wall motion is abnormal with septal motion related to bundle branch block. The left ventricular diastolic function is abnormal. There is no thrombus visualized in the left ventricle although not definitively excluded. Right Ventricle Right ventricular chamber dimension is normal. Right ventricular systolic function is normal. Left Atria Left atrial chamber dimension is mildly enlarged. Right Atria Right atrial chamber dimension is normal. Atrial Septum Intact interatrial septum visualized by color flow imaging. Aortic Valve The aortic valve is probable trileaflet. There is no aortic valve stenosis. There is trace aortic valve regurgitation. Pulmonic Valve The pulmonic valve is normal. There is no pulmonic valve stenosis. There is mild pulmonic regurgitation. Mitral Valve The mitral valve has thickened leaflets. There is no mitral valve stenosis. There is mild mitral valve regurgitation. Tricuspid Valve The tricuspid valve leaflets are normal. There is no significant tricuspid valve stenosis. There is mild tricuspid valve regurgitation. No pulmonary hypertension, estimated pulmonary arterial systolic pressure is 28 mmHg. Pericardium/Pleural The pericardium appears normal. There is no pericardial effusion. Inferior Vena Cava Normal inferior vena cava with >50% collapse upon inspiration consistent with elevated right atrial pressure, 10 mmHg. Aorta The aortic root size at the sinus of Valsalva is normal. Left Ventricular Outflow Tract Name Value Normal LVOT 2D LVOT Diameter 2.2 cm LVOT Doppler LVOT Peak Velocity 73 cm/s LVOT Peak Gradient 2 mmHg LVOT Mean Gradient 1 mmHg LVOT VTI 15 cm LVOT VTI/AV VTI Ratio 0.5 LVOT Stroke Volume 57 ml LVOT CO 4.6 l/min LVOT CI 2.5 l/min/m2 Pulmonic Valve Name Value Normal PV Doppler PV Peak Velocity 96 cm/s PV Peak Gradient 4 mmHg PV Mean Gradient 2 mmHg Mitral Valve Name Value Normal MV Doppler MV Peak Gradient 3 mmHg MV Mean Gradient 1 mmHg MV Area (Cont Eq VTI) 4.3 cm2 MV Diastolic Function MV E Peak Velocity 89 cm/s MV A Peak Velocity 0 cm/s MV E/A 190.7 MV Decel Time (PW) 152 ms MV Annular TDI MV E/e' (Septal) 14.4 MV E/e' (Lateral) 8.4 MV E/e' (Average) 11.4 Tricuspid Valve Name Value Normal TV Regurgitation Doppler TR Peak Velocity 213 cm/s TR Peak Gradient 18 mmHg Estimated PAP/RSVP RA Pressure 10 mmHg <=5 PA Systolic Pressure 28 mmHg <36 RV Systolic Pressure 28 mmHg <36 TV Annular TDI TV Lateral Cailin s' Velocity 15.0 cm/s >=9.5 Aortic Valve Name Value Normal AV Doppler AV Peak Velocity 145 cm/s AV Peak Gradient 6 mmHg AV Mean Gradient 3 mmHg AV VTI 29 cm AV Area (Cont Eq VTI) 1.9 cm2 >=3.0 AV Area (Cont Eq Anam) 1.9 cm2 AV DI (Anam) 0.50 AV Regurgitation 2D LVOT Area 3.7 cm2 Ventricles Name Value Normal LV Dimensions 2D/MM IVS Diastolic Thickness (2D) 1.1 cm 0.6-1.0 LVID Diastole (2D) 4.3 cm 4.2-5.8 LVIW Diastolic Thickness (2D) 0.8 cm 0.6-1.0 LVID Systole (2D) 3.9 cm 2.5-4.0 LVOT Diameter 2.2 cm LV Mass (2D Cubed) 128.45 g 88.00-224.00 LV Mass Index (2D Cubed) 71 g/m2 49-115 Relative Wall Thickness (2D) 0.35 <=0.42 LV Fractional Shortening/Ejection Fraction 2D/MM LV Fractional Shortening (2D) 12 % 25-43 LV EF (2D Teichholz) 23 % LV Diastolic Volume (4C MOD) 73 ml LV EF (4C MOD) 46 % LV Diastolic Volume (2C MOD) 120 ml LV EF (2C MOD) 52 % LV Diastolic Volume (BP MOD) 107 ml 62-150 LV Diastolic Volume Index (BP MOD) 59 ml/m2 34-74 LV Systolic Volume (BP MOD) 53 ml 21-61 LV Systolic Volume Index (BP MOD) 29 ml/m2 11-31 LV EF (BP MOD) 50 % 52-72 LV Diastolic Length (4C) 5.3 cm LV Systolic Length (4C) 5.0 cm LV Stroke Volume (4C MOD) 34 ml Atria Name Value Normal LA Dimensions LA Volume (4C A-L) 72 ml LA Volume (BP A-L) 76 ml RA Dimensions RA Systolic Major [place] Length (4C) 5.4 cm 2.1-2.7 RA Area (4C) 13.3 cm2 <=18.0 Report Signatures
[2025-07-26 04:46] LABS: Hematocrit 29.9 % (42.0-52.0); Hemoglobin 9.5 g/dL (14.0-18.0); Immature Granulocyte Percent A 0.7 % (0-0.5); Lymphocytes Absolute Auto 1.01 K/mm3 (0.9-3.2); Mean Corpuscular HGB Conc 31.8 g/dl (32-36); Mean Corpuscular Hemoglobin 29.8 pg (26-34); Mean Corpuscular Volume 93.7 fl (80-100); Nucleated Red Blood Cells Absolute Auto 0.000 K/mm3 (0.0-0.012); Nucleated Red Blood Cells Perc 0.0 % (0.0-0.2); Platelet Count Result 218 k/mm3 (150-375); Red Blood Count 3.19 M/mm3 (4.6-6.20); White Blood Count 8.7 K/mm3 (4.5-10.0)
[2025-07-26 05:03] LABS: Albumin Level 3.3 g/dL (3.5-5.1); Alkaline Phosphatase 69 U/L (38-126); Anion Gap 11 mmol/L (4-12); Aspartate Amino Transferase 23 U/L (17-59); Bilirubin,Total 0.5 mg/dL (0.2-1.3); Blood Urea Nitrogen 90 mg/dL (9-20); Calcium 9.3 mg/dL (8.4-10.2); Carbon Dioxide 21 mmol/L (22-30); Chloride 108 mmol/L (98-107); Estimated CRCL calculation 14 ml/min; Estimated Glomerular Filt Rate 17; Glucose 78 mg/dL (65-110); Potassium 4.7 mmol/L (3.4-5.0); Sodium 140 mmol/L (137-145); Total Protein 5.8 g/dL (6.3-8.2)
[2025-07-26] MEDS: metroNIDAZOLE 500 MG/ISO 100ML 500 MG/100 ML BAG 100 MG IVPB ×3 (05:31→21:02)
[2025-07-26 05:50] LABS: Alanine Aminotransferase < 6 U/L (6-50)
[2025-07-26] MEDS: LACTATED RINGERS 1,000 ML 100 ML IV CONT ×2 (05:50→16:55)
--- NOTE | 2025-07-26 08:24 | PCSTNOTE ---
Please refer to the Bedside Swallow Evaluation in the EMR. Please note, silent aspiration cannot be ruled out at bedside. The patient is a 84 year old male with a history of Parkinson's disease. Order received from the physician to complete a BSE and r/o aspiration risk. Admitted with dehydration. The patient was positioned upright and reports to [employer] BANDSAW TENDER some coughing at choking with meals in paste. The patient was presented the following consistencies: 5cc/tsp thin liquid, thin liquid via straw, pudding consistency, and cracker/solid. oral Stage: Timely oral preparation and transit viewed for all consistencies without oral residual. Pharyngeal stage: When presented 5cc/thin, pudding, and cracker consistency swallow initiation was viewed to be timely without changes in vocal quality and no noted coughing or choking. When presented thin liquid via straw patient took sequential swallows with a delayed cough after trials. Given history of Parkinson's and recent admission recommended MBS Study.
[2025-07-26] MEDS: FINASTERIDE 5 MG TABLET PO (08:40)
[2025-07-26] MEDS: CARBIDOPA/LEVODOPA 25/100 MG TABLET 2 TABLET PO ×4 (08:40→20:28)
--- NOTE | 2025-07-26 08:58 | WPDURCON ---
Assessment and Plan Assessment and plan (1) BPH (benign prostatic hyperplasia): Code(s): N40.0 - Benign prostatic hyperplasia without lower urinary tract symptoms Status: Acute (2) Urinary retention: Code(s): R33.9 - Retention of urine, unspecified Status: Acute (3) Scrotal cyst: Code(s): L72.9 - Follicular cyst of the skin and subcutaneous tissue, unspecified Status: Acute Plan -Scrotal US shows Large benign-appearing extratesticular cyst in the left scrotum, likely epididymal or tunica vaginalis cyst. No evidence for abscess. Bilateral testicular microlithiasis. Patient reports he has had no issues and nothing is different. He doesnt want to do anything for this. -WBC is 8.7 today -cr was 4.06 on admit and has trended down to 3.42. CKD managed by [facility] -When i was called back up to the floor for retention later in the day, I was able to place a flores catheter 16fr coude without issues. Hospice has since been to see the patient. Plan is for patient to be discharged home on hospice with chronic indwelling flores catheter for comfort and hygiene in the setting of retention. -Discussed with patient's . Educated on the need for continued maintenance requiring monthly catheter changes. Hospice can provide this service or she can bring him to the office, whichever suits them best. -Urology to sign off. Call us for any further concerns. Urology Consult Note HPI Date Seen: 07/26/25 Requesting Physician: Mickey moon Oca, MD Primary Care Provider: [facility] Consult Narrative Narrative: Warren Esparza is a 84 year old male who has a history of Parkinson's and chronic kidney disease. The patient typically goes to [facility] for his care. The patient does see his horse and wagon driver on a routine basis at the [place]. It was reported that the patient has chronic kidney disease and previous creatinine was in the threes. His BUN was 102 upon arrival to [facility] and is now down to 93. Creatinine and was noted to be 4.47 is now 3.71. His GFR was 13 and is now 16 today. Point of care glucose 206. Lactic was 10.4 and is now down to 3.7. His H&H is 10.1 and 31.8. Calculated osmolality was 327. Magnesium 2.9. BNP 3000. Urology consulted for concerns of scrotal abcess after staff reports a lump on scrotum. Scrotal US shows Large benign-appearing extratesticular cyst in the left scrotum, likely epididymal or tunica vaginalis cyst. No evidence for abscess. Bilateral testicular microlithiasis. Later in the day there was concern that the patient was not urinating. patient was uncomfortable and states he cannot pee. Review of Systems Review of Systems: per [facility] Past Medical History Medical History (Updated 07/26/25 @ 18:46 by Shazia Berman MD) Chronic kidney disease Hyperlipidemia BPH (benign prostatic hyperplasia) Macular degeneration Parkinsons Cardiomegaly T2DM (type 2 diabetes mellitus) HTN (hypertension) Surgical History Surgical History (Updated 07/25/25 @ 20:41 by Jessica Salazar APRN) H/O local excision of skin lesion History of cataract extraction Family History Family History (Updated 07/25/25 @ 20:42 by Jessica Salazar APRN) Mother Diabetes mellitus Sibling Diabetes mellitus Father Cerebrovascular accident Son Cancer Social History Social History (Updated 07/25/25 @ 20:46 by Jessica Salazar APRN) Social History: The patient lives at home with his Uyen. He had 3 children and only has 1 surviving daughter now. The patient smokes cigarettes many years ago and quit consenting to smoke cigars for many years. He no longer smokes cigarettes are cigars. He denies any alcohol use. Uyen his is the durable power bull ladle tender for healthcare. Code status: Full code Smoking status: Former smoker Tobacco type: pipe and cigars Alcohol intake: never Substance use: never Substance use type: does not use Lack of Transportation: No Lack of Food: Never True Current Housing: I Have Housing Concerned About Future Housing: No Difficulty Paying Gas/Electric Bills: No Difficulty Paying for Meds: No Currently Unemployed: No Education: High School Diploma/GED Difficulty w/ Childcare or Family Care: No Living arrangements: with family Spiritual care concerns: No Meds Home Medications and Allergies Home Medications ?Medication ?Instructions ?Recorded ?Confirmed ?Type metformin 1,000 mg tablet 1,000 mg PO BID 06/25/21 07/25/25 History aspirin 81 mg chewable tablet 81 mg PO DAILY 07/25/25 07/25/25 History (Aspirin Childrens) carbidopa 25 mg-levodopa 100 mg 2 tablet PO QID 07/25/25 07/25/25 History tablet (Sinemet) carvedilol 25 mg tablet 25 mg PO BID 07/25/25 07/25/25 History cyanocobalamin (vitamin B-12) 2,000 mcg PO EVERY OTHER DAY 07/25/25 07/25/25 History 1,000 mcg tablet ferrous gluconate 324 mg (38 mg 324 mg PO DAILY 07/25/25 07/25/25 History iron) tablet finasteride 5 mg tablet 5 mg PO DAILY 07/25/25 07/25/25 History losartan 100 mg tablet (Cozaar) 100 mg PO DAILY 07/25/25 07/25/25 History nifedipine 60 mg tablet,extended 60 mg PO BID 07/25/25 07/25/25 History release 24 hr (Procardia XL) simvastatin 40 mg tablet 40 mg PO QPM 07/25/25 07/25/25 History simvastatin 80 mg tablet 80 mg PO QPM 07/25/25 07/25/25 History sitagliptin 50 mg tablet 50 mg PO DAILY 07/25/25 07/25/25 History sodium bicarbonate 650 mg tablet 650 mg PO BID 07/25/25 07/25/25 History tamsulosin 0.4 mg capsule 0.4 mg PO DAILY 07/25/25 07/25/25 History Allergies Allergy/AdvReac Type Severity Reaction Status Date / Time No Known Allergies Allergy Verified 07/25/25 18:42 Vital Signs Vital Signs - 24 hr 07/25/25 18:00 07/25/25 18:24 07/25/25 19:51 Temperature 98.0 F 98 F Pulse Rate 89 82 83 Respiratory Rate 20 14 Blood Pressure 158/68 H 153/67 H Pulse Oximetry 100 99 Oxygen Delivery 07/25/25 20:00 07/25/25 20:45 07/25/25 22:00 Temperature Pulse Rate 85 83 86 Respiratory Rate 14 Blood Pressure Pulse Oximetry 99 Oxygen Delivery Room Air 07/25/25 23:27 07/25/25 23:35 07/26/25 00:00 Temperature 98.9 F Pulse Rate 78 78 81 Respiratory Rate 16 16 Blood Pressure 140/5 L Pulse Oximetry 98 98 Oxygen Delivery Room Air 07/26/25 02:00 07/26/25 03:45 07/26/25 04:00 Temperature 98.4 F Pulse Rate 80 71 77 Respiratory Rate 16 Blood Pressure 160/69 H Pulse Oximetry 98 Oxygen Delivery 07/26/25 04:10 07/26/25 06:00 07/26/25 08:25 Temperature 98.7 F Pulse Rate 71 81 79 Respiratory Rate 16 20 Blood Pressure 155/73 H Pulse Oximetry 98 99 Oxygen Delivery Room Air Exam Const: General: uncomfortable Eyes: General: appearance normal, both eyes and all related structures Resp: Effort & Inspection: normal respiratory effort : Other: phimosis Urinary Catheter: Urinary Catheter: urine clear (clear yellow urine after catheter placed. ) Skin: General skin exam: normal color Results Labs 07/26/25 04:22 07/26/25 04:22 Labs: Short CBC 07/26/25 Range/Units 04:22 WBC 8.7 (4.5-10.0) K/mm3 Hgb 9.5 L (14.0-18.0) g/dL Hct 29.9 L (42.0-52.0) % Plt Count 218 (150-375) k/mm3 [facility] 07/25/25 07/25/25 07/26/25 18:55 21:55 04:22 Sodium 140 139 140 Potassium 5.5 H 4.6 4.7 Chloride 106 106 108 H Carbon Dioxide 13 L 16 L 21 L BUN 93 H 91 H 90 H Creatinine 3.71 H 3.49 H 3.42 H Glucose 94 143 H 78 Calcium 9.0 9.2 9.3 Liver Function 07/26/25 Range/Units 04:22 Total Bilirubin 0.5 (0.2-1.3) mg/dL AST 23 (17-59) U/L ALT < 6 L (6-50) U/L Alkaline Phosphatase 69 (38-126) U/L Albumin 3.3 L (3.5-5.1) g/dL
[2025-07-26] MEDS: PERFLUTREN LIPID MICROSPHERES 1.5 ML VIAL DILUTED TO 10 ML TOTAL VOLUME IV PUSH (11:43)
--- NOTE | 2025-07-26 11:43 | IVDEFINITY ---
Prior to administration of IV Definity the patient was educated on the risks and benefits of the imaging enhancing agent including potential adverse side effects. The patient verbalized understanding. Allergies were verified. No exclusion criteria were identified and at least one of the following inclusion criteria were met: 1) physician request, 2) patient technically difficult to image (per the [place] [employer] Echocardi[employer] guidelines of two or more segments not discernable within the apical view), or 3) questionable left ventricular function. ?
--- NOTE | 2025-07-26 14:43 | PC.NURSE ---
It was reported that the patient was unable to urinate. Family states that the patient often has issues with urination at home, and that he does have a history of prostate problems. Upon further assessment and information from the ultra sound techs, the patient is noted to have a full bladder during the renal ultra sound. This information was called to Dr Jackson, who gave an order to place a Barroso Catheter. This RN tried to place the catheter, but was unsuccessful. This RN called the urologist that was consulted to report the findings and inability to place catheter. The office stated that they would inform the urologist.
--- NOTE | 2025-07-26 14:51 | PCSTNOTE ---
Please refer to the Modified Barium Swallow Evaluation in the EMR. The above patient was admitted with a history of Parkinson's and chronic kidney disease.? Pt has reportedly had a decline in appetite over the past couple/few weeks and, per his spouse, has hardly eaten anything. An MBS was recommended after the BSE due to suspected/possible aspiration with straw drinking thin liquids, as well as the decreased intake at home and the diagnosis of Parkinson's disease. The pt was seated for a lateral view and was presented with multiple trials (3) of 5ml of thin liquids via a spoon, pudding consistency barium via a spoon, crumbled cracker coated with barium pudding via spoon, and uncontrolled thin liquid barium.? This was presented via a cup & straw.? Oral preparatory and oral phase symptoms: with the thin liquids and pudding trials, the oral stages were WFL; with the crumbled cracker trial, slowed mastication was exhibited; pt was able to eventually propel the bolus posteriorly and cleared all contents from the oral cavity. Pharyngeal phase: mildly reduced laryngeal elevation as evidenced by trace and shallow laryngeal penetration which appeared to clear & trace pyriform sinus residue; mildly reduced tongue base retraction as evidenced by trace vallecular residue. Esophageal stage symptoms: none.? Overall, no aspiration occurred. Impression: mild dysphagia; pt is able to tolerate a level 5 minced and moist diet and level 0 thin liquids. Pt should be positioned completely upright with all oral intake with head/neck in a chin tuck or down position. Recommendation: level 5 minced and moist diet with level 0 thin liquid. Pt requires feeding assistance.? Head/neck should be in a chin tuck/downward position, not tilted up & back during cup drinking. ST to treat dysphagia even though it is a mild degree due to his recent decreased appetite, possible deconditioning and further risk of aspiration; pt's spouse may deter treatment as she stated she didn't want to put him through that. ST explained exercises and she agreed.
--- NOTE | 2025-07-26 14:53 | PC.NURSE ---
Urology returned this RNs call and states they have a couple more patients to see but will come up as soon as finished.
--- NOTE | 2025-07-26 16:02 | P.CONNP_ITS ---
Assessment and Plan Assessment and plan (1) Acute kidney injury: Code(s): N17.9 - Acute kidney failure, unspecified Status: Acute Assessment and Plan: * as noted by admission labs * slow improvement noted * suspect multifactorial etiology * prerenal factors (poor oral intake) * urinary retention * concurrent ARB use * component of cardiorenal syndrome (depressed EF by Echo) * other(?) * evaluation to date noted: * renal ultrasound with bilateral hydronephrosis (flores in place now) * urine studies ordered * CPK ordered * improved noted with trial of IVFs * follow trend of repeat labs and UOP (2) Stage 4 chronic kidney disease: Code(s): N18.4 - Chronic kidney disease, stage 4 (severe) Status: Chronic Assessment and Plan: * baseline creatinine not entirely clear * per , reportedly in the 3ish range * likely secondary to hypertension, diabetes, vascular disease, and age-related change (3) Urinary obstruction: Code(s): N13.9 - Obstructive and reflux uropathy, unspecified Status: Acute Assessment and Plan: * as noted by recent renal ultrasound * due to BPH(?) * Urology following * s/p flores catheter placement (4) Cardiomyopathy: Code(s): I42.9 - Cardiomyopathy, unspecified Status: Acute Assessment and Plan: * as noted by recent Echo: * left ventricular systolic function is severely reduced, estimated at 15 - 20% * left ventricular diastolic function is abnormal * mild mitral valve regurgitation * mild tricuspid valve regurgitation * mild pulmonic regurgitation * likely playing a role with #1 * Cardiology consulted (5) HTN (hypertension): Code(s): I10 - Essential (primary) hypertension Status: Acute Assessment and Plan: * reasonable control * follow trend of hemodynamics (6) T2DM (type 2 diabetes mellitus): Code(s): E11.9 - Type 2 diabetes mellitus without complications Status: Acute Assessment and Plan: * follow accu-cheks * glycemic control per hospitalist Long extensive discussion (greater than 20 minutes) with the patient's at bedside regarding the patient's acute kidney injury on top his baseline chronic kidney disease now complicated by obstructive uropathy and a severe cardiomyopathy. Although his renal function does appear to be somewhat better in general, I worry that his other acute medical issues may push his kidney function to the point where he may require renal replacement therapy/dialysis. I discussed this concern with the patient's and she confirmed with me that the patient would not want to pursue renal replacement therapy/dialysis under any circumstances and he has discussed this with his back shoe operator at the [facility] as well. I will continue to follow the patient with you while he remains hospitalized and make further recommendations as deemed necessary. Thank you for allowing me to participate in the care of this patient. L History of Present Illness Reason for Consult Consult date: 07/26/25 Reason for consult: acute renal failure (on chronic kidney disease) Chief Complaint Chief complaint: susan,hyperkalemia History of Present Illness Narrative: The patient is a 84-year-old male patient with a past medical history as outlined below who presented to [facility] ER due to generalized weakness. According to his , the patient has had a poor appetite for last 2 weeks if not longer.. He is able to drink liquids through a straw without difficulty but he feels that the food gets stuck in his throat and hence, has been having difficulty swallowing solid food. The patient has been more difficult to care for at home according to the . He has been having more difficulty moving and feels that he has been losing weight. She was able to contact his physicians at the [facility] (as he get the maority of his care there) who recommended he be evaluated in the ER. The stated that [facility] him with his declining condition so he was brought here to [facility] ER for further assessment. Work-up and evaluation in the ER demonstrated the patient to be hemodynamically stable and afebrile. Routine blood work noted a WBC of 8.3, hemoglobin 10.1, platelet count 245, sodium 143, potassium 6.4, CO2 10, BUN 102, creatinine 4.47, glucose 206, magnesium 2.9, lactic acid 10.4, and BNP 3000. Viral serology was negative. Head CT was read as no acute intracranial findings. Chest x-ray was read as no acute findings. He was given 2 L of IV bolus, sodium bicarb 50 mEq, 10 units IV push of regular insulin, and D50 with improvement in his potassium and lactic acid. He was continued on IVFs given the concerns of volume depletion and subsequently admitted to the hospital for further evaluation and therapy. Since his admission, he has been seen in consultation by Urology due to urinary retention and evidence obstructive uropathy by renal ultrasound with subsequent placement of a Flores catheter. Furthermore, he has also had echocardiogram that shows a significant cardiomyopathy with an EF of 15-20%. In spite of these findings, his renal function has actually improved since admission in conjunction with stabilization of his electrolytes, specifically, his hyperkalemia. Renal consultation was requested due to his acute kidney injury/ acute renal failure on top of his baseline chronic kidney disease. Unfortunately, I do not have any specific blood tests with regard to what his baseline renal functions/ creatinine runs although according to his , his creatinine usually runs in the 3 simin range which would argue he probably has at least chronic kidney disease stage 4. Most of his care with regard to his management of his chronic kidney disease is also at the [facility] as he has an established back shoe operator that he follows therapy. As already mentioned above, his creatinine was up to 0.47 mg/dL on presentation to the outside hospital ER and with ongoing interventions, has come down to 3.02 mg/dL which is presumably close to his baseline function. Currently, at the time my evaluation, he appears to be resting comfortably and in no apparent distress. Review of Systems 2 Review of Systems: As per HPI. PENDING SALE TO [facility] Past Medical History Medical History (Updated 08/20/25 @ 23:38 by Shazia Berman MD) Chronic kidney disease Hyperlipidemia BPH (benign prostatic hyperplasia) Macular degeneration Parkinsons Cardiomegaly T2DM (type 2 diabetes mellitus) HTN (hypertension) Surgical History Surgical History (Updated 07/25/25 @ 20:41 by Jessica Salazar APRN) H/O local excision of skin lesion History of cataract extraction Family History Family History (Updated 07/25/25 @ 20:42 by Jessica Salazar APRN) Mother Diabetes mellitus Sibling Diabetes mellitus Father Cerebrovascular accident Son Cancer Social History Social History (Updated 07/25/25 @ 20:46 by Jessica Salazar APRN) Social History: The patient lives at home with his Uyen. He had 3 children and only has 1 surviving daughter now. The patient smokes cigarettes many years ago and quit consenting to smoke cigars for many years. He no longer smokes cigarettes are cigars. He denies any alcohol use. Uyen his is the durable power document review attorney for healthcare. Code status: Full code Smoking status: Former smoker Tobacco type: pipe and cigars Alcohol intake: never Substance use: never Substance use type: does not use Lack of Transportation: No Lack of Food: Never True Current Housing: I Have Housing Concerned About Future Housing: No Difficulty Paying Gas/Electric Bills: No Difficulty Paying for Meds: No Currently Unemployed: No Education: High School Diploma/GED Difficulty w/ Childcare or Family Care: No Living arrangements: with family Spiritual care concerns: No Meds Home Medications and Allergies Home Medications ?Medication ?Instructions ?Recorded ?Confirmed ?Type aspirin 81 mg chewable tablet 81 mg PO DAILY 30 days # 0 tabs 07/27/25 07/25/25 Rx (Aspirin Childrens) carbidopa 25 mg-levodopa 100 mg 2 tablet PO QID 30 day s #0 tabs 07/27/25 07/25/25 Rx tablet (Sinemet) carvedilol 25 mg tablet 25 mg PO BID 30 days #0 tabs 07/27/25 07/25/25 Rx finasteride 5 mg tablet 5 mg PO DAILY 30 days #0 tab s 07/27/25 07/25/25 Rx losartan 100 mg tablet (Cozaar) 100 mg PO DAILY 30 day s #0 tabs 07/27/25 07/25/25 Rx metformin 1,000 mg tablet 1,000 mg PO BID 30 days #0 t abs 07/27/25 07/25/25 Rx nifedipine 60 mg tablet,extended 60 mg PO BID 30 days #0 tabs 07/27/25 07/25/25 Rx release 24 hr (Procardia XL) sitagliptin 50 mg tablet 50 mg PO DAILY 30 days #0 ta bs 07/27/25 07/25/25 Rx sodium bicarbonate 650 mg tablet 650 mg PO BID 30 days #0 tabs 07/27/25 07/25/25 Rx tamsulosin 0.4 mg capsule 0.4 mg PO DAILY 30 days #0 c aps 07/27/25 07/25/25 Rx Allergies Allergy/AdvReac Type Severity Reaction Status Date / Time No Known Allergies Allergy Verified 07/25/25 18:42 Vital Signs Vital Signs Temp Pulse Resp BP Pulse Ox O2 Del Method 07/26/25 16:00 74 20 98 Room Air 07/26/25 15:41 98.0 F 72 20 152/73 H 98 07/26/25 14:00 77 07/26/25 12:00 75 07/26/25 12:00 75 20 99 Room Air 07/26/25 12:00 97.4 F L 78 20 151/78 H 99 07/26/25 10:00 71 07/26/25 08:25 98.7 F 79 20 155/73 H 99 07/26/25 08:00 79 07/26/25 08:00 79 20 99 Room Air 07/26/25 06:00 81 07/26/25 04:10 71 16 98 Room Air 07/26/25 04:00 77 07/26/25 03:45 98.4 F 71 16 160/69 H 98 07/26/25 02:00 80 07/26/25 00:00 81 07/25/25 23:35 78 16 98 Room Air 07/25/25 23:27 98.9 F 78 16 140/5 L 98 07/25/25 22:00 86 07/25/25 20:45 83 14 99 Room Air 07/25/25 20:00 85 07/25/25 19:51 98 F 83 14 153/67 H 99 Exam 2 Narrative: GENERAL APPEARANCE: elderly but well developed well nourished male in no acute distress HEENT: normocephalic, atraumatic, normal conjunctiva and sclera, nares patient NECK: no lymphadenopathy, thyromegaly, or JVD MOUTH: normal lips, teeth, and gums CARDIOVASCULAR: RRR, normal S1 and S2, no rub RESPIRATORY: clear anteriorly ABDOMEN: soft, nontender, nondistended, positive bowel sounds present EXTREMITIES: no evidence of cyanosis, clubbing, or edema NEUROLOGICAL: awake and alert; CN II - XII intact bilaterally; no focal deficits noted Results Lab Results 07/26/25 04:22 07/27/25 04:20 Lab results: Most recent lab results Calcium 9.3 mg/dL (8.4-10.2) 07/26/25 04:22
[2025-07-26] MEDS: LIDOCAINE 2% GEL UROJET 10 ML PKG MUCOUS MEM (16:12)
--- NOTE | 2025-07-26 16:41 | PM.IMPN ---
Progress Note: A&P Assessment and Plan (1) Acute renal failure superimposed on stage 5 chronic kidney disease, not on chronic dialysis: Code(s): N17.9 - Acute kidney failure, unspecified; N18.5 - Chronic kidney disease, stage 5 Status: Acute Assessment and Plan: Poor oral intake for the past 2-3 weeks due to sensation of food getting stuck in throat likely contributing to DARWIN on CKD. Creatinine 4.06 on admission now improving to 3.42. Nephrology has been consulted. Per patient's he does not wish to pursue hemodialysis. Patient had associated metabolic acidosis and hyperkalemia both of which are improving with IV hydration. Continue monitoring renal function Nephrology consulted Avoid nephrotoxic agents Renal dosing of trucks (2) Scrotal cyst: Code(s): L72.9 - Follicular cyst of the skin and subcutaneous tissue, unspecified Status: Acute Assessment and Plan: Patient had mass on scrotum identified by his . Neurology was brought on board, and scrotal ultrasound was ordered which returned with a large benign-appearing extratesticular cyst in the left scrotum likely epididymal or of the tunica vaginalis, without evidence for abscess at this time. Patient has been started on antibiotics for this on admission given concern for abscess. Discontinue antibiotics at this time Follow urology recommendations (3) Hyperkalemia: Code(s): E87.5 - Hyperkalemia Status: Resolved Assessment and Plan: Potassium was 6.4 on admission, now normalized to 4.7 after treatment of DARWIN/hydration Resolved (4) Urinary retention: Code(s): R33.9 - Retention of urine, unspecified Status: Acute Assessment and Plan: Patient appears to be having issues with urinary retention likely due to BPH. Barroso has been placed. Monitor [facility] for Barroso management on discharge if needed (5) Parkinsons: Code(s): G20.A1 - Parkinson's disease without dyskinesia, without mention of fluctuations Status: Acute Assessment and Plan: History of Parkinson's disease on carbidopa/levodopa Continue above Plan Patient's family is discussing under requesting hospice. Will involve care coordination for next steps. They do not wish for NG tube placement for feeding at this time Subjective Date/time seen: 07/26/25 16:41 Interval history: This is an 84-year-old male patient who has a history of Parkinson's and chronic kidney disease. The patient typically goes to [facility] for his care. The patient does see his docking pilot on a routine basis at the [place]. the patient is very hard of hearing and the family is answering questions for him. According to his Uyen, the patient has had a poor appetite for last 2 weeks. She tells me that he is able to drink liquids through a straw without difficulty. However at times he feels that the food gets stuck in his throat and has difficulty swallowing the food. The patient has been more difficult to care for at home according to the . She stated that she gets help at home approximately 3 hours a day. He has been having more difficulty moving and feels that he has been losing weight. She stated that he was drinking water today through a straw without difficulty. She also noticed a red in area to the left testicle that appears to have a blister on it. He is diabetic and is not routinely checked at home with a glucose monitor. According to the Uyen, she did contact the docking pilot at [facility] and it was recommended that the patient be seen at the nearest emergency room. The stated that she can no longer take him to the [place] as is too far to take him with his declining condition. She did not want to take the patient to the [facility] and rather wanted the patient to stay locally. Initial potassium was 6.4 and is now down to 5.5. It was reported that the patient has chronic kidney disease and previous creatinine was in the threes. His BUN was 102 upon arrival to [facility] and is now down to 93. Creatinine and was noted to be 4.47 is now 3.71. His GFR was 13 and is now 16 today. Point of care glucose 206. Lactic was 10.4 and is now down to 3.7. His H&H is 10.1 and 31.8. Calculated osmolality was 327. Magnesium 2.9. BNP 3000. Viral serology is negative. Head CT was read as no acute intracranial findings. Chest x-ray was read as no acute findings. EKG was read as uncertain regular rhythm left axis deviation. It QTC 472. The patient does have some tremors and the is EKG appears to have some interference. The patient reportedly received 2 L of IV bolus, sodium bicarb 50 mEq, 10 units IV push of regular insulin, and D50. The patient was transferred to [facility] with the family members at the bedside answering questions. He denies any nausea vomiting or diarrhea. The patient is being admitted to observation status on the date of service of 07/25/2025. Review of Systems Review of Systems: The patient is very hard of hearing does not have his hearing aids with him at this time. The family is answering questions for him. ROS unobtainable: Yes unobtainable due to medical condition Exam Const: General: cooperative, healthy appearing, comfortable, no acute distress, well developed, awake, Physically active, average body habitus and well nourished Nutritional Appearance: average body habitus and well nourished Orientation/consciousness: oriented to person, oriented to place, oriented to time and patient oriented x3 Limitations: no limitations HENMT: Head: normal to inspection and No palpable skull fracture present Ears: hearing grossly impaired bilaterally Other: The stated that he typically has hearing aids which are [facility]. patient does not have his hearing aids with him today. Eyes: General: appearance normal, both eyes and all related structures Alignment and Position: alignment normal Neck: Neck: normal visual inspection Chest: Chest palpation & inspection: normal inspection of the chest Resp: Effort & Inspection: normal respiratory effort Auscultation: clear to auscultation bilaterally Cardio: Palpation: normal PMI Rate: regular rate Rhythm: regular rhythm Heart sounds: S1 normal heart sound present and S2 normal heart sound present Peripheral pulses: dorsalis pedis present (1+ pedal pulses) bilateral GI: Inspection: normal to inspection : Scrotum: edematous on the left, erythematous and scrotal swelling on the left Other: Pustular abscess noted to the left lower distal portion of the left scrotum. Skin: General skin exam: normal color Neuro: General: oriented to person Cranial nerves: Yes Equal, round and reactive pupils present Motor exam (neuro): Tremors during motor activity present (At rest bilateral upper extremity) Psych: Appearance: grossly normal Speech and movement: Normal speech and movement present Affect: normal affect Attitude: cooperative Thought process: Normal thought process present Thought content: Yes Normal thought content present Objective Data Vital Signs Vital Signs: Vital Signs - 24 hr 07/25/25 18:00 07/25/25 18:24 07/25/25 19:51 Temperature 98.0 F 98 F Pulse Rate 89 82 83 Respiratory Rate 20 14 Blood Pressure 158/68 H 153/67 H Pulse Oximetry 100 99 Oxygen Delivery 07/25/25 20:00 07/25/25 20:45 07/25/25 22:00 Temperature Pulse Rate 85 83 86 Respiratory Rate 14 Blood Pressure Pulse Oximetry 99 Oxygen Delivery Room Air 07/25/25 23:27 07/25/25 23:35 07/26/25 00:00 Temperature 98.9 F Pulse Rate 78 78 81 Respiratory Rate 16 16 Blood Pressure 140/5 L Pulse Oximetry 98 98 Oxygen Delivery Room Air 07/26/25 02:00 07/26/25 03:45 07/26/25 04:00 Temperature 98.4 F Pulse Rate 80 71 77 Respiratory Rate 16 Blood Pressure 160/69 H Pulse Oximetry 98 Oxygen Delivery 07/26/25 04:10 07/26/25 06:00 07/26/25 08:00 Temperature Pulse Rate 71 81 79 Respiratory Rate 16 20 Blood Pressure Pulse Oximetry 98 99 Oxygen Delivery Room Air Room Air 07/26/25 08:00 07/26/25 08:25 07/26/25 10:00 Temperature 98.7 F Pulse Rate 79 79 71 Respiratory Rate 20 Blood Pressure 155/73 H Pulse Oximetry 99 Oxygen Delivery 07/26/25 12:00 07/26/25 12:00 07/26/25 12:00 Temperature 97.4 F L Pulse Rate 78 75 75 Respiratory Rate 20 20 Blood Pressure 151/78 H Pulse Oximetry 99 99 Oxygen Delivery Room Air 07/26/25 15:41 Temperature 98.0 F Pulse Rate 72 Respiratory Rate 20 Blood Pressure 152/73 H Pulse Oximetry 98 Oxygen Delivery Intake/Output Intake/Output: Intake & Output 07/23/25 07/24/25 07/25/25 07/26/25 22:59 23:59 23:59 23:59 Intake Total 200 1100 Output Total 3250 Balance 200 -2150 Meds/Results Medications: Active Medications Generic Name Dose Route Start Last Admin Trade Name Freq PRN Reason Stop Dose Admin Acetaminophen 650 mg 07/25/25 18:18 Acetaminophen 325 Mg Tablet PO Q4H PRN Mild Pain (1-3) or Fever Bisacodyl 5 mg 07/25/25 18:18 Bisacodyl 5 Mg Tablet Ec PO DAILY PRN Constipation Carbidopa/Levodopa 2 tablet 07/25/25 21:00 07/26/25 13:23 Carbidopa/Levodopa 25/100 Mg Tablet PO 2 tablet QID TRUNG Administration Dextrose 12.5 gm 07/25/25 20:08 Dextrose 50% 25 Gm/50 Ml Syringe IV PUSH PRN PRN Hypoglycemia Protocol Finasteride 5 mg 07/26/25 09:00 07/26/25 08:40 Finasteride 5 Mg Tablet PO 5 mg DAILY TRUNG Administration Glucagon 1 mg 07/25/25 20:08 Glucagon For Inj 1 Mg Vial IM PRN PRN Hypoglycemia Protocol Glucose 15 gm 07/25/25 20:08 Glucose Oral Gel 15 Gm Of Glucse In 37.5 Gm Tube PO PRN PRN Hypoglycemia Protocol Hydralazine HCl 10 mg 07/25/25 21:21 Hydralazine Hcl 20 Mg/Ml Vial IV PUSH Q8H PRN Blood Pressure - High Lactated Ringer's 1,000 mls @ 100 mls/hr 07/25/25 18:20 07/26/25 05:50 Lr - Lactated Ringers Iv IV CONT 100 mls/hr .Q10H TRUNG Administration Dextrose 1,000 mls @ 100 mls/hr 07/25/25 20:08 Dextrose 5% 1,000 Ml IVPB PRN PRN Hypoglycemia Protocol Metronidazole 500 mg in 100 mls @ 100 mls/hr 07/25/25 21:00 07/26/25 13:23 Flagyl 500 Mg/Iso Soln 100 Ml IVPB 100 mls/hr Q8HR TRUNG Administration Cefepime HCl 1 gm/ Sodium 50 mls @ 100 mls/hr 07/26/25 21:00 Chloride IVPB Q24H [facility] Insulin Aspart 2 - 5 units 07/26/25 00:00 07/26/25 13:22 Insulin Aspart (*Bkc) 100 Units/Ml SUB-Q Not Given Q6HR [facility] Protocol Ondansetron HCl 4 mg 07/25/25 18:18 Ondansetron Inj 4 Mg/2 Ml Vial IV PUSH Q6H PRN Nausea And Vomiting Vancomycin HCl 1 each 07/25/25 20:50 Vancomycin For Acute Kidney Injury IVPB PRN PRN Vancomycin Protocol Radiology Results: ITS Impressions Scrotum Ultrasound 07/25/25 21:27 IMPRESSION: 1. Large benign-appearing extratesticular cyst in the left scrotum, likely epididymal or tunica vaginalis cyst. No evidence for abscess. 2: Bilateral testicular microlithiasis. This finding is likely incidental. Indicator of malignancy is less favored given the patient's age. Modified Barium Swallow 07/26/25 13:52 IMPRESSION: Mild oropharyngeal dysphagia with transient trace/flash laryngeal penetration without aspiration. Please correlate with speech pathologist findings and specific feeding recommendations. Renal Ultrasound 07/26/25 15:06 Impression: 1: Ill-defined bilateral echogenicity throughout both kidneys. Cannot exclude underlying mass. Probable bilateral renal stones. Consider correlation with contrast-enhanced CT or MRI. 2: Large right renal cyst measuring 6.6 cm. 3: Bilateral hydronephrosis, left greater than right. Labs Labs: Laboratory Results - last 24 hr 07/25/25 07/25/25 07/25/25 18:55 21:55 23:37 WBC RBC Hgb Hct MCV MCH MCHC RDW Plt Count MPV Immature Gran % (Auto) Neut % (Auto) Lymph % (Auto) [place] % (Auto) Eos % (Auto) Baso % (Auto) Lymph # (Auto) [place] # (Auto) Eos # (Auto) Baso # (Auto) Abs Immat Gran (auto) Absolute Neuts (auto) Absolute Nucleated RBC Nucleated RBC % Sodium 140 139 Potassium 5.5 H 4.6 Chloride 106 106 Carbon Dioxide 13 L 16 L Anion Gap 21 H 17 H BUN 93 H 91 H Creatinine 3.71 H 3.49 H Estim Creat Clear Calc 13 13 Estimated GFR 16 L 17 L Glucose 94 143 H POC Capillary Glucose 93 Lactic Acid 3.7 H Calcium 9.0 9.2 Total Bilirubin AST ALT Alkaline Phosphatase Total Protein Albumin 07/26/25 07/26/25 07/26/25 04:22 11:52 15:47 WBC 8.7 RBC 3.19 L Hgb 9.5 L Hct 29.9 L MCV 93.7 MCH 29.8 MCHC 31.8 L RDW 14.1 Plt Count 218 MPV 9.3 Immature Gran % (Auto) 0.7 H Neut % (Auto) 76.2 H Lymph % (Auto) 11.6 L [place] % (Auto) 10.2 H Eos % (Auto) 0.8 Baso % (Auto) 0.5 Lymph # (Auto) 1.01 [place] # (Auto) 0.9 H Eos # (Auto) 0.1 Baso # (Auto) 0.0 Abs Immat Gran (auto) 0.06 H Absolute Neuts (auto) 6.6 Absolute Nucleated RBC 0.000 Nucleated RBC % 0.0 Sodium 140 Potassium 4.7 Chloride 108 H Carbon Dioxide 21 L Anion Gap 11 BUN 90 H Creatinine 3.42 H Estim Creat Clear Calc 14 Estimated GFR 17 L Glucose 78 POC Capillary Glucose 125 H 120 H Lactic Acid 1.4 Calcium 9.3 Total Bilirubin 0.5 AST 23 ALT < 6 L Alkaline Phosphatase 69 Total Protein 5.8 L Albumin 3.3 L Hospitalist MIPS Advance Care Plan I have confirmed that the patient's Advanced Care Plan is present, code status is documented, or surrogate decision maker is listed in patient medical record.: Yes Medication Reconciliation I have utilized all available resources to obtain, update and review the patients current medications (includes all prescriptions, OTC, herbals, cannabis, and nutritional supplements).: Yes
[2025-07-26] MEDS: CEFEPIME 1 GM in SODIUM CHLORIDE 0.9% IV 50 ML 100 ML IVPB (20:28)
[2025-07-26] MEDS: VANCOMYCIN HCL 1,000 MG in SODIUM CHLORIDE 0.9% IV 250 ML 250 MG IVPB (23:42)
[2025-07-27] VITALS (10 sets, daily range): BP systolic 129–134; BP diastolic 51–67; PULSE 69–82; RESP 16–18; TEMP 36.3–36.8; O2SAT 95–97
[2025-07-27] MEDS: LACTATED RINGERS 1,000 ML 100 ML IV CONT (04:28)
[2025-07-27 04:44] LABS: Estimated CRCL calculation 15 ml/min; Estimated Glomerular Filt Rate 20
[2025-07-27] MEDS: metroNIDAZOLE 500 MG/ISO 100ML 500 MG/100 ML BAG 100 MG IVPB (05:44)
[2025-07-27 06:31] LABS: Anion Gap 11 mmol/L (4-12); Blood Urea Nitrogen 77 mg/dL (9-20); Calcium 8.7 mg/dL (8.4-10.2); Carbon Dioxide 19 mmol/L (22-30); Chloride 110 mmol/L (98-107); Glucose 115 mg/dL (65-110); Potassium 4.3 mmol/L (3.4-5.0); Sodium 140 mmol/L (137-145)
--- NOTE | 2025-07-27 11:09 | PCOTNOTE ---
Per RNjanette, patient is discharging home on hospice. Patient is currently waiting for an ambulance for transport.
--- NOTE | 2025-07-27 12:40 | P.DS_ITS ---
DS: Admitting Diagnosis Discharge Date 07/27/25 Admitting Diagnosis DARWIN DS: Discharge Diagnosis Discharge Diagnosis (1) Acute renal failure superimposed on stage 5 chronic kidney disease, not on chronic dialysis: Code(s): N17.9 - Acute kidney failure, unspecified; N18.5 - Chronic kidney disease, stage 5 Status: Acute (2) HTN (hypertension): Code(s): I10 - Essential (primary) hypertension Status: Acute (3) Scrotal cyst: Code(s): L72.9 - Follicular cyst of the skin and subcutaneous tissue, unspecified Status: Acute (4) Hyperkalemia: Code(s): E87.5 - Hyperkalemia Status: Resolved (5) Urinary retention: Code(s): R33.9 - Retention of urine, unspecified Status: Acute DS: Summary Hospital Course Hospital Course: This is an 84-year-old male patient who has a history of Parkinson's and chronic kidney disease. The patient typically goes to [facility] for his care. The patient does see his echo technologist on a routine basis at the [place]. the patient is very hard of hearing and the family is answering questions for him. According to his Uyen, the patient has had a poor appetite for last 2 w eeks. She tells me that he is able to drink liquids through a straw without difficulty. However at times he feels that the food gets stuck in his throat and has difficulty swallowing the food. The patient has been more difficult to care for at home according to the . She stated that she gets help at home approximately 3 hours a day. He has been having more difficulty moving and feels that he has been losing weight. She stated that he was drinking water today through a straw without difficulty. She also noticed a red in area to the left testicle that appears to have a blister on it. He is diabetic and is not routinely checked at home with a glucose monitor. According to the Uyen, she did contact the echo technologist at [facility] and it was recommended that the patient be seen at the nearest emergency room. The stated that she can no longer take him to the [place] as is too far to take him with his declining condition. She did not want to take the patient to the [facility] and rather wanted the patient to stay locally. Initial potassium was 6.4 and is now down to 5.5. It was reported that the patient has chronic kidney disease and previous creatinine was in the threes. His BUN was 102 upon arrival to [facility] and is now down to 93. Creatinine and was noted to be 4.47 is now 3.71. His GFR was 13 and is now 16 today. Point of care glucose 206. Lactic was 10.4 and is now down to 3.7. His H&H is 10.1 and 31.8. Calculated osmolality was 327. Magnesium 2.9. BNP 3000. Viral serology is negative. Head CT was read as no acute intracranial findings. Chest x-ray was read as no acute findings. EKG was read as uncertain regular rhythm left axis deviation. It QTC 472. The patient does have some tremors and the is EKG appears to have some interference. The patient reportedly received 2 L of IV bolus, sodium bicarb 50 mEq, 10 units IV push of regular insulin, and D50. The patient was transferred to [facility] with the family members at the bedside answering questions. He denies any nausea vomiting or diarrhea. The patient is being admitted to observation status on the date of service of 07/25/2025. Patient was seen by Urology for scrotal swelling, ultrasound done reviewed, noted to be due to a benign cyst, as such antibiotics or initially started due to concern for abscess were discontinued. Patient had Barroso catheter placed also request a Urology, which patient can be discharged with for comfort. Patient was also seen by Nephrology, DARWIN was improving as well as associated metabolic acidosis and hyperkalemia. However his general clinical status continued to deteriorate during hospitalization. Patient is having poor oral intake, failure to thrive, he generally is not showing signs of improvement despite above improvement. Echocardiogram showed ejection fraction 15-20%. As such it was decided that he will be discharging to hospice. Status at Discharge Functional status at discharge: bed bound Overall status at discharge: patient is not back to baseline Time Spent with Patient Time attestation: Total time spent providing and/or coordinating discharge services: Exam Const: General: cooperative, comfortable, no acute distress, well developed and awake Nutritional Appearance: average body habitus Orientation/consciousness: oriented to person, oriented to place, oriented to time and patient oriented x3 HENMT: Head: normal to inspection and No palpable skull fracture present Ears: hearing grossly impaired bilaterally Other: The stated that he typically has hearing aids which are [facility]ural [facility]. patient does not have his hearing aids with him today. Eyes: General: appearance normal, both eyes and all related structures Alignment and Position: alignment normal Neck: Neck: normal visual inspection Chest: Chest palpation & inspection: normal inspection of the chest Resp: Effort & Inspection: normal respiratory effort Auscultation: clear to auscultation bilaterally Cardio: Palpation: normal PMI Rate: regular rate Rhythm: regular rhythm Heart sounds: S1 normal heart sound present and S2 normal heart sound present Peripheral pulses: dorsalis pedis present (1+ pedal pulses) bilateral GI: Inspection: normal to inspection : Scrotum: edematous on the left, erythematous and scrotal swelling on the left Other: Cyst noted to the left lower distal portion of the left scrotum. Skin: General skin exam: normal color Neuro: General: oriented to person Cranial nerves: Yes Equal, round and reactive pupils present Motor exam (neuro): Tremors during motor activity present (At rest bilateral upper extremity) Psych: Appearance: grossly normal Speech and movement: Normal speech and movement present Affect: normal affect Attitude: cooperative Thought process: Normal thought process present Thought content: Yes Normal thought content present DS: Data Data Completed and Pending Labs on day of discharge: Labs from last 24 hours 07/27/25 07/27/25 07/27/25 11:33 05:57 04:20 Sodium 140 Potassium 4.3 Chloride 110 H Carbon Dioxide 19 L Anion Gap 11 BUN 77 H D Creatinine 3.02 H Estim Creat Clear Calc 15 Estimated GFR 20 L Glucose 115 H POC Capillary Glucose 181 H 126 H Calcium 8.7 Random Vancomycin 11/02/1207/26/25 07/26/25 23:42 20:57 15:47 Sodium Potassium Chloride Carbon Dioxide Anion Gap BUN Creatinine Estim Creat Clear Calc Estimated GFR Glucose POC Capillary Glucose 117 H 120 H Calcium Random Vancomycin 11.5 07/26/25 11:52 Sodium Potassium Chloride Carbon Dioxide Anion Gap BUN Creatinine Estim Creat Clear Calc Estimated GFR Glucose POC Capillary Glucose 125 H Calcium Random Vancomycin Discharge Plan Discharge Attending physician on discharge: Mickey Darden Oca Consulting providers: Dionicio Dawson; Shazia Berman Discharging Clinician: Mickey Darden Oca Patient Disposition: Hospice - Home Activity: as tolerated Diet: as tolerated Patient Language: Yoruba Stand Alone Forms: General Discharge Information Discharge Medications: Continued metformin 1,000 mg Tablet 1,000 mg PO BID 30 Days Qty: 0 0RF finasteride 5 mg tablet 5 mg PO DAILY 30 Days Qty: 0 0RF nifedipine [Procardia XL] 60 mg tablet extended release 24hr 60 mg PO BID 30 Days Qty: 0 0RF losartan [Cozaar] 100 mg tablet 100 mg PO DAILY 30 Days Qty: 0 0RF sodium bicarbonate 650 mg tablet 650 mg PO BID 30 Days Qty: 0 0RF sitagliptin 50 mg tablet 50 mg PO DAILY 30 Days Qty: 0 0RF carvedilol 25 mg tablet 25 mg PO BID 30 Days Qty: 0 0RF Rx Instructions: must administer with a meal/food carbidopa-levodopa [Sinemet] 25-100 mg tablet 2 tablet PO QID 30 Days Qty: 0 0RF aspirin [Aspirin Childrens] 81 mg tablet,chewable 81 mg PO DAILY 30 Days Qty: 0 0RF tamsulosin 0.4 mg capsule 0.4 mg PO DAILY 30 Days Qty: 0 0RF Rx Instructions: takes at noon Discontinued simvastatin 40 mg tablet 40 mg PO QPM ferrous gluconate 324 mg (38 mg iron) tablet 324 mg PO DAILY Rx Instructions: takes at noon cyanocobalamin (vitamin B-12) 1,000 mcg tablet 2,000 mcg PO EVERY OTHER DAY simvastatin 80 mg tablet 80 mg PO QPM Date of admission: 07/25/25 17:36 Primary Care Provider: [facility] Admitting Provider: Mickey Darden Oca Attending physician on admission: Mickey Darden Oca Condition: Unstable Care Plan Goals: Discharge to hospice Hospitalist MIPS Heart Failure (Exclusion) Patient has history of Heart Transplant or Left Ventricular Assistive Device?: No IF YES, STOP HERE Heart Failure (Qualifier) Patient has current or prior documentation of LVEF less than or equal to 40%, or mod/servere depressed LVSF?: Yes IF NO, STOP HERE If Yes, Heart Failure (Qualifier) Patient was prescribed or already taking an Angiotensin-Converting Enzyme (DELMER) Inhibitor, or Antiotensin Receptor Sabi (ARB): No Patient was prescribed or already taking bisoprolol, carvedilol, or sustained release metoprolol succinate: No If Medications not prescribed/taking Reason patient not prescribed/taking DELMER or ARB: Patient reasons: pt declined or other pt reason Reason patient not prescribed/taking bisoprolol, carvedilol, or sustained realease metoprolol succinate: Patient reasons: pt declined or other pt reason
== END 2025-07-27 14:16 | disposition hospice, home (50) ==
PROVIDERS: Nurse Practitioner; Student in an Organized Health Care Education/Training Program; Admitting Provider Student in an Organized Health Care Education/Training Program; Visit Provider Student in an Organized Health Care Education/Training Program
DX: N17.9 Acute kidney failure, unspecified (principal); N18.5 Chronic kidney disease, stage 5; N49.2 Inflammatory disorders of scrotum; R33.9 Retention of urine, unspecified; L72.9 Follicular cyst of the skin and subcutaneous tissue, unspecified; G20.A1 Parkinson's disease without dyskinesia, without mention of fluctuations; E78.5 Hyperlipidemia, unspecified; I51.7 Cardiomegaly; E11.22 Type 2 diabetes mellitus with diabetic chronic kidney disease; N40.0 Benign prostatic hyperplasia without lower urinary tract symptoms; I12.9 Hypertensive chronic kidney disease with stage 1 through stage 4 chronic kidney disease, or unspecified chronic kidney disease; Z87.891 Personal history of nicotine dependence
CPT/HCPCS: 36415; 74230; 76770; 76870; 80048; 80053; 80202; 82565; 82948; 83605; 85025; 87040; 92526; 92610; 92611; 93976; 96361; 96365; 96366; 96367; 96375; 96376; 99212; A9270; C8929; G0378; G0463; J0612; J0692; J1815; J1836; J3373; J7050; J7120; Q9957